=== PATIENT | male | born 1950 | race Caucasian/White ===

== ENCOUNTER → 2020-03-11 08:23 | Outpatient (BNVA) | payer MEDICARE, OTHER, SELFPAY | PROVIDERS: Family Provider Family Medicine; PCP Family Medicine; Visit Provider Family Medicine | DX: I10 Essential (primary) hypertension (principal); R35.1 Nocturia; Z12.5 Encounter for screening for malignant neoplasm of prostate; E78.5 Hyperlipidemia, unspecified; E78.2 Mixed hyperlipidemia | CPT/HCPCS: 80053; 80061; 82044; 84153; 85025 ==

== ENCOUNTER 2020-05-27 16:48 | Emergency (ER) | payer MEDICARE, OTHER, SELFPAY ==
[2020-05-27 16:51] VITALS: BP 145/67; PULSE 50; RESP 18; TEMP 36.3; O2SAT 93; BMI 31.4
--- NOTE | 2020-05-27 17:51 | XR_ITS ---
WS: [id number] PORTABLE CHEST HISTORY: Right-sided pain. COMPARISON: None available. Mild pulmonary hyperinflation. No pneumonia. No pleural effusion or pneumothorax. Cardiac size: Mildly enlarged cardiac silhouette. Mediastinum/Aorta: Mild atherosclerosis aorta. No osseous abnormality seen. XR/XR chest 1V portable [id number] IMPRESSION: Mild chronic emphysema and mild cardiomegaly. No acute cardiopulmonary disease.
--- NOTE | 2020-05-27 17:51 | ECG_ITS ---
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 Measurements Intervals [place] Rate: 48 P: 53 MO: 150 QRS: 7 QRSD: 94 T: 31 QT: 453 QTc: 407 Interpretive Statements SINUS BRADYCARDIA No previous ECG available for comparison Electronically Signed On 05-27-2020 20:34:03 CDT by Suma Austin M.D. [id number]
--- NOTE | 2020-05-27 18:35 | ED_ITS ---
HPI - Chest Pain General: Chief Complaint: Chest Pain Stated Complaint: cp Time Seen by Provider: 05/27/20 18:27 History of Present Illness: HPI narrative: Patient states he was woken from sleep about 11:00 today when he is taken a nap with pain in his right side up above the kidney area. 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 Has a history of arrhythmias denies any heart attack or stents. Has had a history of kidney stones. MD complaint: chest discomfort Onset (ago): hour(s) Timing of current episode: episodic and now resolved Prior episodes: No Onset: during rest, during exertion and awoke with symptoms Pain location: substernal and right chest Pain radiation: none Severity: mild Quality: sharp Relieving factors: nitroglycerin and rest Exacerbating factors: nothing Associated symptoms: Reports no associated symptoms; Deny abdominal pain, dyspnea, fever(s), nausea or vomiting Treatment prior to arrival: aspirin and nitroglycerin Review of Systems Const: Denies: fever(s), chills or body aches Eyes: Denies: change in vision or blurry vision ENMT: Denies: throat pain or nasal congestion Card: Reports: chest pain (Right-sided chest pain and then some substernal pressure); Denies: dyspnea on exertion Resp: Denies: dyspnea, productive cough or non-productive cough GI: Denies: abdominal pain, nausea or vomiting : Denies: difficulty urinating Musc: Denies: extremity pain Skin/Breast: Denies: rash Neuro: Denies: headache(s) Psych: Denies: anxiety or depression Juan/Lymph: Denies: easy bruising PFSH ED PFSH: Medical History (Updated 05/27/20 @ 20:18 by CIRO Aragon) Enrolled in chronic care management Essential hypertension Hyperlipidemia Surgical History H/O vasectomy History of appendectomy History of tonsillectomy and adenoidectomy Family History Other Cancer Social History Smoking and tobacco status: former smoker Alcohol intake: never Physical Exam Const: COMMON NORMALS: no acute distress, average body habitus and patient oriented x3 HENMT: COMMON NORMALS: normocephalic HEAD & SCALP: normal to inspection and normocephalic FACE & SINUS: normal facial exam Eye: COMMON NORMALS: conjunctivae normal GENERAL EYE: appearance normal, both eyes and all related structures CONJUNCTIVA: Yes conjunctivae normal Neck/C-Spine: COMMON NORMALS: no JVD Chest: COMMONS NORMALS: normal inspection of the chest Resp: COMMON NORMALS: normal respiratory effort and clear to auscultation bilaterally AUSCULTATION: clear to auscultation bilaterally Cardio: COMMON NORMALS: no JVD, regular rate and regular rhythm RATE: regular rate RHYTHM: regular rhythm GI: COMMON NORMALS: Normal to inspection, nondistended, normoactive bowel sounds present Extremity: COMMON NORMALS: normal to inspection and full ROM Neuro: COMMON NORMALS: patient oriented x3 Course Vital Signs: Vital signs: Vital Signs Temperature 97.4 F L 05/27/20 16:51 Pulse Rate 44 L 05/27/20 18:46 Respiratory Rate 17 05/27/20 18:46 Blood Pressure 143/59 05/27/20 18:46 Pulse Oximetry 98 05/27/20 18:46 MDM - Chest Pain MDM Narrative: Medical decision making narrative: Discussed case with Dr. Brown. Patient with the atypical chest pain possible pleurisy possible angina gallbladder disease Lab Data: Labs: Lab Results 05/27/20 05/27/20 05/27/20 Range/Units 18:42 18:42 18:42 WBC 11.3 H (4.0-10.0) 10^3/ uL RBC 4.64 (4.1-5.3) 10^6/u L Hgb 13.1 (11.7-16.6) g/dL Hct 41.2 L (42.0-52.0) % MCV 88.8 (80-94) fL MCH 28.2 (28.0-34.0) pg MCHC 31.8 (30.0-36.0) g/dL RDW 14.6 (12.1-15.1) % Plt Count 163 (130-400) 10^3/c mm MPV 11.2 H (7.4-10.4) fL Neut % (Auto) 60.0 % Lymph % (Auto) 22.7 % Perkins % (Auto) 7.8 % Eos % (Auto) 7.5 % Baso % (Auto) 1.6 % Neut # (Auto) 6.79 (1.8-7.7) 10^3/u L Lymph # (Auto) 2.6 (0.8-4.8) 10^3/u L Perkins # (Auto) 0.9 (0.2-0.9) 10^3/u L Eos # (Auto) 0.9 H (0.0-0.8) 10^3/u L Baso # (Auto) 0.2 H (0.0-0.1) 10^3/u L Nucleated RBC % (a uto) 0 % Nucleated RBCs # 0.0 /100WBC Sodium 142 (136-145) mmol/L Potassium 4.4 (3.5-5.1) mmol/L Chloride 102 (98-107) mmol/L Carbon Dioxide 30 H (22-29) mmol/L Anion Gap 14.4 (5-19) BUN 20 (8-23) mg/dL Creatinine 1.3 H (0.7-1.2) mg/dL GFR Calculation 54.9 L (90-130) mL/min Glucose 88 (65-115) mg/dL Calculated Osmolal ity 290 (285-295) mOsm/k g Calcium 9.8 (8.5-10.5) mg/dL Total Bilirubin 0.4 (0.15-1.2) mg/dL AST 16 (0-40) U/L ALT 8 (0-41) U/L Alkaline Phosphata se 93 (40-130) IU/L Troponin T Baselin e 9 (0-15) ng/L Troponin T 120 Min [place] (0-15) ng/L Delta Troponin T (0-10) ABS# Total Protein 7.2 (6.6-8.7) g/dL Albumin 4.7 (3.5-5.2) g/dL Globulin 2.5 (1.3-4.6) g/dL 05/27/20 Range/Units 19:07 WBC (4.0-10.0) 10^3/ uL RBC (4.1-5.3) 10^6/u L Hgb (11.7-16.6) g/dL Hct (42.0-52.0) % MCV (80-94) fL MCH (28.0-34.0) pg MCHC (30.0-36.0) g/dL RDW (12.1-15.1) % Plt Count (130-400) 10^3/c mm MPV (7.4-10.4) fL Neut % (Auto) % Lymph % (Auto) % Perkins % (Auto) % Eos % (Auto) % Baso % (Auto) % Neut # (Auto) (1.8-7.7) 10^3/u L Lymph # (Auto) (0.8-4.8) 10^3/u L Perkins # (Auto) (0.2-0.9) 10^3/u L Eos # (Auto) (0.0-0.8) 10^3/u L Baso # (Auto) (0.0-0.1) 10^3/u L Nucleated RBC % (a uto) % Nucleated RBCs # /100WBC Sodium (136-145) mmol/L Potassium (3.5-5.1) mmol/L Chloride (98-107) mmol/L Carbon Dioxide (22-29) mmol/L Anion Gap (5-19) BUN (8-23) mg/dL Creatinine (0.7-1.2) mg/dL GFR Calculation (90-130) mL/min Glucose (65-115) mg/dL Calculated Osmolal ity (285-295) mOsm/k g Calcium (8.5-10.5) mg/dL Total Bilirubin (0.15-1.2) mg/dL AST (0-40) U/L ALT (0-41) U/L Alkaline Phosphata se (40-130) IU/L Troponin T Baselin e (0-15) ng/L Troponin T 120 Min [place] 8.61 (0-15) ng/L Delta Troponin T -0.39 L (0-10) ABS# Total Protein (6.6-8.7) g/dL Albumin (3.5-5.2) g/dL Globulin (1.3-4.6) g/dL Discharge Plan Discharge Patient Disposition: Home, Self-Care Clinical Impression: Atypical chest pain Condition: Stable Prescriptions: No Action aspirin 81 mg tablet,delayed release (DR/EC) 81 mg PO DAILY RF: 0 hydrochlorothiazide 25 mg tablet 25 mg PO QAM Qty: 90 RF: 0 meloxicam 15 mg tablet 15 mg PO QDAY Qty: 90 RF: 0 losartan 50 mg tablet 50 mg PO QDAY Qty: 90 RF: 0 atorvastatin 20 mg tablet 20 mg PO QDAY Qty: 90 RF: 0 pantoprazole 40 mg tablet,delayed release (DR/EC) 40 mg PO QDAY Qty: 90 RF: 0 metoprolol succinate 25 mg tablet extended release 24 hr 12.5 mg PO QDAY RF: 0 Discharge Orders: Discharge Order (Routine); Ordered 05/27/20 Ordered By: Shaw Crump Referrals: Damari Nielosn DO [Primary Care Provider] - Discharge Diet: Usual diet Discharge Activity: Increase activity as tolerated Patient Instructions: Chest Pain (ED) Activity Restrictions/Additional Instructions: Follow-up with medical provider as directed. Take routine medicines. Return to the ER or your medical provider if condition worsens. Please read and understand discharge instructions. If any questions ask please. Coding Level of Care Code ED Quarter Folder for Adi Fwda Exam Comprehensive
[2020-05-27 18:46] VITALS: BP 143/59; PULSE 44; RESP 17; O2SAT 98
[2020-05-27 19:16] LABS: Basophils # 0.2 10^3/uL (0.0-0.1); Basophils % 1.6 %; Eosinophils # 0.9 10^3/uL (0.0-0.8); Eosinophils % 7.5 %; Hematocrit 41.2 % (42.0-52.0); Hemoglobin 13.1 g/dL (11.7-16.6); Lymphocytes # 2.6 10^3/uL (0.8-4.8); Lymphocytes % 22.7 %; Mean Corpuscular HGB Conc 31.8 g/dL (30.0-36.0); Mean Corpuscular Hemoglobin 28.2 pg (28.0-34.0); Mean Corpuscular Volume 88.8 fL (80-94); Mean Platelet Volume 11.2 fL (7.4-10.4); Monocytes # 0.9 10^3/uL (0.2-0.9); Monocytes % 7.8 %; Neutrophils # 6.79 10^3/uL (1.8-7.7); Nucleated Red Blood Cells % 0 %; Platelet Count 163 10^3/cmm (130-400); Red Blood Count 4.64 10^6/uL (4.1-5.3); Red Cell Distribution Width 14.6 % (12.1-15.1); White Blood Count 11.3 10^3/uL (4.0-10.0)
[2020-05-27 19:27] LABS: Alanine Aminotransferase 8 U/L (0-41); Albumin Level 4.7 g/dL (3.5-5.2); Alkaline Phosphatase 93 IU/L (40-130); Anion Gap 14.4 (5-19); Aspartate Amino Transferase 16 U/L (0-40); Blood Urea Nitrogen 20 mg/dL (8-23); Calcium 9.8 mg/dL (8.5-10.5); Carbon Dioxide 30 mmol/L (22-29); Chloride 102 mmol/L (98-107); Globulin 2.5 g/dL (1.3-4.6); Glomerular Filtration Rate 54.9 mL/min (90-130); Glucose 88 mg/dL (65-115); Osmolality Calculated 290 mOsm/kg (285-295); Potassium 4.4 mmol/L (3.5-5.1); Sodium 142 mmol/L (136-145); Total Bilirubin 0.4 mg/dL (0.15-1.2); Total Protein 7.2 g/dL (6.6-8.7)
[2020-05-27 19:29] LABS: Troponin(5th) Baseline 9 ng/L (0-15)
[2020-05-27 19:35] LABS: Troponin 5 2HR 8.61 ng/L (0-15)
[2020-05-27 19:38] LABS: Troponin 5 2HR Delta -0.39 ABS# (0-10)
[2020-05-27 19:46] VITALS: BP 145/64; PULSE 45; RESP 16; O2SAT 97
--- NOTE | 2020-05-27 19:51 | ECG_ITS ---
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 Measurements Intervals [place] Rate: 41 P: 60 AZ: 165 QRS: 4 QRSD: 103 T: 28 QT: 486 QTc: 402 Interpretive Statements SINUS BRADYCARDIA MINIMAL ST DEPRESSION [0.025+ mV ST DEPRESSION] Compared to ECG 05/27/2020 16:55:50 ST (T wave) deviation now present Electronically Signed On 05-28-2020 17:08:33 CDT by Bay Matias M.D. [id number] f
--- NOTE | 2020-05-27 20:04 | PC.NURSE ---
ekg done at 1948 and shown to ER doctor
[2020-05-27 20:46] VITALS: BP 124/59; PULSE 46; RESP 15; O2SAT 100
== END 2020-05-27 21:14 | disposition home or self-care (01) ==
PROVIDERS: Emergency Provider Nurse Practitioner Family; PCP Family Medicine
DX: R07.89 Other chest pain (principal); Z79.82 Long term (current) use of aspirin; I10 Essential (primary) hypertension; E78.5 Hyperlipidemia, unspecified; Z87.891 Personal history of nicotine dependence
CPT/HCPCS: 12345; 36415; 71045; 80053; 84484; 85025; 93005; 99283

== ENCOUNTER → 2020-12-10 10:04 | Outpatient (BNVA) | payer MEDICARE, OTHER, SELFPAY | PROVIDERS: PCP Family Medicine; Visit Provider Family Medicine | DX: E78.2 Mixed hyperlipidemia (principal); I10 Essential (primary) hypertension; K21.9 Gastro-esophageal reflux disease without esophagitis | CPT/HCPCS: 80053; 80061; 85025 ==

== ENCOUNTER → 2021-02-17 08:10 | Outpatient (BNVA) | payer MEDICARE, OTHER, SELFPAY | PROVIDERS: PCP Family Medicine; Visit Provider Family Medicine | DX: I10 Essential (primary) hypertension (principal) | CPT/HCPCS: 80048 ==

== ENCOUNTER → 2021-03-22 08:32 | Outpatient (BNVA) | payer MEDICARE, OTHER, SELFPAY | PROVIDERS: PCP Family Medicine; Visit Provider Family Medicine | DX: M25.50 Pain in unspecified joint (principal) | CPT/HCPCS: 80048 ==

== ENCOUNTER → 2021-11-29 11:21 | Outpatient (BNVA) | payer MEDICARE, SELFPAY | PROVIDERS: PCP Family Medicine; Visit Provider Family Medicine | DX: Z12.5 Encounter for screening for malignant neoplasm of prostate (principal); I10 Essential (primary) hypertension; E78.2 Mixed hyperlipidemia | CPT/HCPCS: 80053; 80061; 82043; 85025; G0103 ==

== ENCOUNTER → 2021-12-14 08:52 | Outpatient (BNVA) | payer MEDICARE, SELFPAY | PROVIDERS: PCP Family Medicine; Visit Provider Family Medicine | DX: N28.9 Disorder of kidney and ureter, unspecified (principal) | CPT/HCPCS: 80048 ==

== ENCOUNTER → 2022-05-30 09:34 | Outpatient (BNVA) | payer MEDICARE, SELFPAY | PROVIDERS: PCP Family Medicine; Visit Provider Family Medicine | DX: I10 Essential (primary) hypertension (principal) | CPT/HCPCS: 80053 ==

== ENCOUNTER 2022-08-31 06:33 | Outpatient (CLI) | payer MEDICARE, OTHER, SELFPAY ==
[2022-08-31 06:55] VITALS: BMI 31.1
--- NOTE | 2022-08-31 07:17 | ECG_ITS ---
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 Interpretive Statements NAME OF STUDY: EXERCISE SESTAMIBI STRESS TEST INDICATION: Chest Pain, PROCEDURE: The baseline electrocardiogram showed sinus bradycardia with a rate of [address] changes in the inferior leads.. At the baseline, the patient's blood pressure was 141/74 mm Hg with a heart rate of 55. The patient exercised for 4 minutes and 31 seconds on a standard Vlad protocol. Patient attained a maximum heart rate of 149 beats per minute(99% of the maximum predicted heart rate) with a blood pressure at the peak exercise of 196/83 mm Hg. The EKG at the peak exercise revealed no significant changes. Patient did not have any chest pain or any significant arrhythmis with the exercise Sestamibi was injected 1 minute prior to the peak exercise During the recovery phase, there were no new changes. Blood pressure at the end of the recovery phase was 174/76 mm Hg with a heart rate of 95 per minute. CONCLUSION: 1. No significant EKG changes with the treadmill exercise 2. No exercise-induced chest pain or cardiac arrhythmia 3. Impaired exercise tolerance, attained a maximum of 7 METs 4. Sestamibi/Sestamibi perfusion results pending; see separate report. Electronically Signed On 09-01-2022 10:11:28 CDT by Suma Austin M.D. [id number]
--- NOTE | 2022-08-31 07:17 | NMCV_ITS ---
NM dee perf SPECT r/s* [id number] Kannan Ren Age: 72 Gender: M : 1950 Exam Date: 08/31/2022 07:32 Ordering Phys: Damari Nielson DO Technologist: RANJEET Sim Exam Location: [facility] Indications: Chest pain, SOB STRESS TEST Please see separate stress test report in Ephiphany for full findings IMAGE PROTOCOL Rest/Stress 1 Exercise Day Radiopharmaceutical Dose (mCi) Administration Site Administered by Rest: Tc-99m 11.0 IV RANJEET Sim Sestamibi Stress:Tc-99m 33.0 IV RANJEET Sim Sestamibi Rest: 31-Aug-2022 60 Discovery 630 Stress: 31-Aug-2022 30 Discovery 630 Radiopharmaceutical was injected at 87 % maximum heart rate. Supine position only as patient was unable to lay prone. SPECT RESULTS Technical Quality: Excellent Raw Data Analysis: Normal Image Corrections: No attenuation or motion correction applied Summed Stress Score: 0 Summed Rest Score: 6 Summed Difference Score: 0 PERFUSION FINDINGS Small area of slightly decreased tracer uptake was noted in the mid inferior wall region. No significant reversibility was noted in this area FUNCTIONAL RESULTS (calculated via Gated SPECT) Stress Image LV EF (%): 81 Stress EDV (mL):102 TID: 0.87 Stress ESV (mL):19 FUNCTIONAL FINDINGS: Segmental wall motion analysis revealing no gross wall motion normalities IMPRESSIONS 1. Myocardial perfusion imaging revealing a small area of slightly decreased persistent tracer uptake in the inferior wall region, most likely represent attenuation artifact. 2. Normal LV ejection fraction of 81%. 3. LV wall motion analysis revealing no gross wall motion abnormalities. 4. Normal LV volume Low probability for coronary ischemia, based on the above findings Dr Suma Austin MD [facility] (Electronically Signed) Final Date: 31 August 2022 13:57 S
[2022-08-31 08:58] VITALS: BP 174/76; PULSE 93
== END 2022-08-31 06:34 | disposition home or self-care (01) ==
PROVIDERS: PCP Family Medicine; Visit Provider Family Medicine
DX: R07.9 Chest pain, unspecified (principal); R06.02 Shortness of breath
CPT/HCPCS: 78452; 93017; A9500

== ENCOUNTER → 2022-11-28 10:10 | Outpatient (BNVA) | payer MEDICARE, OTHER, SELFPAY | PROVIDERS: PCP Family Medicine; Visit Provider Family Medicine | DX: I10 Essential (primary) hypertension (principal); R35.1 Nocturia | CPT/HCPCS: 80048; 84153 ==

== ENCOUNTER → 2023-01-10 14:00 | Outpatient (BNVA) | payer MEDICARE, OTHER, SELFPAY | PROVIDERS: PCP Family Medicine; Visit Provider Internal Medicine Cardiovascular Disease | DX: R07.89 Other chest pain (principal); R06.09 Other forms of dyspnea; G47.10 Hypersomnia, unspecified; E78.2 Mixed hyperlipidemia; I12.9 Hypertensive chronic kidney disease with stage 1 through stage 4 chronic kidney disease, or unspecified chronic kidney disease; Z87.891 Personal history of nicotine dependence; N18.32 Chronic kidney disease, stage 3b; R06.02 Shortness of breath | CPT/HCPCS: 36415; 80048; 80076; 82550; 83880; 93005; 99204 ==

== ENCOUNTER 2023-02-03 13:51 | Outpatient (CLI) | payer MEDICARE, OTHER, SELFPAY ==
--- NOTE | 2023-02-03 14:15 | USCV_ITS ---
Kannan Ren Age: 72 Gender: M : 1950 Exam Date: 02/03/2023 14:33 Ordering Phys: Suma Austin MD ([email or web address]) Technologist: SONU Exam Location: [facility] [place] Indication: CHEST PAIN BP: 144 / 80 HR: 48 Rhythm: Sinus Technical Quality: Adequate MEASUREMENTS (Male / Female) Normal Values 2D ECHO LVOT Diameter 2.0 cm LV Ejection Fraction MOD 2C 68.9 % LV Ejection Fraction 2C AL 71.5 % LA Diameter 4.3 cm LA Width 4.0 cm LA Height 5.6 cm RA Width 2.6 cm RA Height 5.2 cm Aorta at Sinotubular Diameter 3.1 cm IVC Diameter 1.8 cm M-MODE Aortic Annulus Diameter 3.1 cm LA Ao Ratio MM 1.3 MV E Point Septal Separation 0.4 cm DOPPLER AV Peak Velocity 163.7 cm/s LVOT Peak Velocity 135.0 cm/s AV Area Cont Eq vti 3.0 cm squared AV Area Cont Eq pk 2.7 cm squared MV Peak Velocity 64.0 cm/s MV Area PHT 3.5 cm squared Mitral E to A Ratio 1.2 MV E' Velocity 39.0 cm/s Mitral E to MV E' Ratio 8.7 Mitral E to LV E' Lateral Ratio 8.7 Mitral E to LV E' Septal Ratio 8.8 TR Peak Velocity 152.2 cm/s TR Peak Gradient 9.3 mmHg TR Mean Velocity 123.5 cm/s TR Mean Gradient 6.3 mmHg TR Velocity Time Integral 43.2 cm TV Peak E Velocity 46.0 cm/s Right Atrial Pressure 3.0 mmHg Pulmonary Artery Systolic Pressu 12.3 mmHg PV Peak Velocity 90.0 cm/s RV Acceleration Time 0.1 s RV Ejection Time 0.4 s RV AcT/ET 0.3 FINDINGS Left Ventricle Normal left ventricular size and systolic function, EF 69 %. No regional wall motion abnormalities. Right Ventricle Normal right ventricular size and systolic function. Right Atrium The right atrium is normal in size. Left Atrium The left atrium is normal in size. Mitral Valve Structurally normal mitral valve without significant stenosis or prolapse. There is no mitral regurgitation. Aortic Valve Thickened aortic valve. Mild aortic valve regurgitation. Tricuspid Valve No gross abnormalities noted Pulmonic Valve Structurally normal pulmonic valve. Pericardium No pericardial effusion. Aorta Normal aortic annulus size. IVC The inferior vena cava appears normal. CONCLUSIONS Normal left ventricular size and systolic function, EF 69 %. No regional wall motion abnormalities. Thickened aortic valve. Mild aortic valve regurgitation. Normal cardiac chamber sizes. No significant mitral or tricuspid valve lesions. There is no pericardial effusion. There are no intracardiac masses. No similar previous studies are available for comparison Dr Suma Austin MD [facility] (Electronically Signed) Final Date: 03 February 2023 16:42 S
== END 2023-02-03 13:52 | disposition home or self-care (01) ==
PROVIDERS: PCP Family Medicine; Visit Provider Internal Medicine Cardiovascular Disease
DX: R06.09 Other forms of dyspnea (principal); R07.9 Chest pain, unspecified; I35.1 Nonrheumatic aortic (valve) insufficiency
CPT/HCPCS: 93306

== ENCOUNTER → 2023-05-29 09:56 | Outpatient (BNVA) | payer MEDICARE, OTHER, SELFPAY | PROVIDERS: PCP Family Medicine; Visit Provider Family Medicine | DX: N18.32 Chronic kidney disease, stage 3b (principal); E78.2 Mixed hyperlipidemia | CPT/HCPCS: 80053; 80061 ==

== ENCOUNTER 2023-11-30 09:17 | Outpatient (CLI) | payer MEDICARE, OTHER, SELFPAY ==
--- NOTE | 2023-11-30 09:26 | XR_ITS ---
WS: [id number] XR sacroiliac jts m 3V [id number] REASON FOR EXAM: right knee pain FINDINGS: Sacroiliac joints are well-defined with thin sclerotic margins. No erosions, bridging, or fusion. No sacral insufficiency fractures. Severe osteoarthritis of the right hip with severe subchondral sclerosis and cystic change in the malathi tabulum and femoral head. [id number] articulation. IMPRESSION: No significant abnormality of the sacroiliac joints. Severe osteoarthritis of the right hip as above.
--- NOTE | 2023-11-30 09:26 | XR_ITS ---
WS: [id number] XR lumbar spine 2-3V* [id number] REASON FOR EXAM: right SI pain FINDINGS: 5 lumbar vertebrae. Rotatory scoliosis convex left. Relatively normal lordosis. No focal vertebral body abnormality. Significant narrowing of the L2-L3 disc space with moderate endplate sclerosis and osteophytosis. No spondylolysis or significant spondylolisthesis. Mild degenerative changes in the facet joints L4 4 to S1. IMPRESSION: Moderate changes of degenerative spondylosis in the lumbar spine.
--- NOTE | 2023-11-30 09:26 | XR_ITS ---
WS: [id number] XR knee RT 3V* [id number] REASON FOR EXAM: right knee pain FINDINGS: No fracture or focal bone lesion. Medial knee joint space is intact with mild subchondral sclerosis. Mild narrowing of the lateral knee joint space with mild subchondral sclerosis. Patellofemoral joint space is intact with mild subchondral sclerosis of the patella. No soft tissue abnormality. IMPRESSION: Mild osteoarthritis at the right knee.
== END 2023-11-30 09:18 | disposition home or self-care (01) ==
LOC: RAD 09:22
PROVIDERS: PCP Family Medicine; Visit Provider Family Medicine
DX: M53.3 Sacrococcygeal disorders, not elsewhere classified (principal); G89.29 Other chronic pain; I10 Essential (primary) hypertension; R35.1 Nocturia; M16.11 Unilateral primary osteoarthritis, right hip; M47.817 Spondylosis without myelopathy or radiculopathy, lumbosacral region; M17.11 Unilateral primary osteoarthritis, right knee
CPT/HCPCS: 72100; 72202; 73562; 80053; 84153; 85025

== ENCOUNTER → 2024-01-22 13:16 | Outpatient (BNVA) | payer MEDICARE, OTHER, SELFPAY | PROVIDERS: PCP Family Medicine; Referring Provider Family Medicine; Visit Provider Specialist | DX: M25.551 Pain in right hip (principal); M16.11 Unilateral primary osteoarthritis, right hip; Z01.818 Encounter for other preprocedural examination | CPT/HCPCS: 73502; 73560; 73565; 80053; 81003; 85025; 99204 ==

== ENCOUNTER → 2024-02-14 09:45 | Outpatient (BNVA) | payer MEDICARE, OTHER, SELFPAY | PROVIDERS: PCP Family Medicine; Visit Provider Family Medicine | DX: Z01.818 Encounter for other preprocedural examination (principal) | CPT/HCPCS: 81003; 93005 ==

== ENCOUNTER 2024-02-22 12:10 | Inpatient (IN) | payer MEDICARE, OTHER, SELFPAY ==
[2024-02-22] VITALS (18 sets, daily range): BP systolic 106–135; BP diastolic 65–91; PULSE 65–89; RESP 14–18; TEMP 35.6–36.7; O2SAT 92–96; BMI 31.3; BMI 4491.3
--- NOTE | 2024-02-22 07:10 | P.HPUD_ITS ---
Surgery/Procedure H&P Update DATE OF PROCEDURE: February 22, 2024 DATE H&P PERFORMED: 02/14/24 H&P UPDATE INFORMATION: I have reviewed H&P completed within last 30 days, I have examined patient prior to procedure, No changes to prior documentation and H&P is in [facility] EMR on date indicated PLANNED PROCEDURE: Operation Date: 02/22/24 08:50 Proposed Procedures p Total Hip Arthroplasty(Right) - Jennie Cole MD Related Problem List Diagnoses (1) Primary osteoarthritis of right hip:
--- NOTE | 2024-02-22 07:55 | ANES.PREANE2 ---
Pre-Anesthetic Assessment Height/Weight: Height 1.83 m Weight 104.647 kg Temp Pulse Resp BP Pulse Ox O2 Del Method 97.5 F L 65 16 129/80 96 Room Air 02/22/24 07:22 02/22/24 07:22 02/22/24 07:22 02/22/24 07:22 02/22/24 07:22 02/22/24 07:29 Operation Date: 02/22/24 08:50 Proposed Procedures p Total Hip Arthroplasty(Right) - Jennie Cole MD Was Beta Juan taken within 24 hours: Yes Last intake: Intake Last Liquid Date 02/21/24 Last Liquid Time 21:00 Last Solid Date 02/21/24 Last Solid Time 21:00 Social No alcohol and No tobacco Exam alert, oriented x 3, clear to auscultation bilaterally and regular rate & rhythm Airway Submandibular: within normal limits Cervical ROM: within normal limits Mallampati: Class I CV/HEM Arrythmia and Hypertension None reported Hepatic None reported GI None reported Metabolic None reported Musc/skel None reported Anesthetic Plan ASA status: 2 Anesthesia: Regional (specify below) Other: spinal discussed. Risk of > 500 ml blood loss (7ml/kg in children): Yes, adequate IV access and fluids planned Medications/Allergies Home Medications Medication Instructions Recorded Confirmed Last Taken Type nitroglycerin 0.4 mg sublingual 0.4 mg sublingual Q5M PRN chest 10/13/23 02/21/24 Unknown Rx tablet (Nitrostat) pain #20 tabs tramadol 50 mg tablet 50 mg PO BID PRN pain #180 tabs 12/04/23 02/21/24 02/21/24 Rx losartan 50 mg tablet 50 mg PO QDAY 90 days #90 tabs 12/19/23 02/21/24 02/21/24 Rx meloxicam 7.5 mg tablet 7.5 mg PO QDAY 90 days #90 tabs 12/19/23 02/21/24 02/20/24 Rx hydrochlorothiazide 25 mg tablet 25 mg PO DAILY 02/21/24 02/21/24 02/21/24 History metoprolol succinate 25 mg 12.5 mg PO DAILY 02/21/24 02/21/24 02/21/24 History tablet,extended release 24 hr pantoprazole 40 mg tablet,delayed 40 mg PO DAILY 04/02/21/24 02/21/24 History release Allergies Allergy/AdvReac Type Severity Reaction Status Date / Time No Known Allergies Allergy Verified 02/14/24 10:08 [facility] Anesthesia Medical History Hyperlipidemia Essential hypertension Surgical History History of appendectomy History of tonsillectomy and adenoidectomy H/O vasectomy Family History Other Cancer Social History Smoking and tobacco/nicotine status: former use of tobacco/nicotine Second hand smoke exposure: No Alcohol intake: never Substance/Drug Use: never Data Anesthesia Cardiac Studies: Echocardiogram 02/03/23 Sestamibi Stress Test (Cardiology) 08/31/22 Cardiac Event Monitor 10/25/23
[2024-02-22] MEDS: CELEcoxib 200 mg Capsule 400 MG PO (08:01)
[2024-02-22] MEDS: sodium chloride 0.9% 1,000 ML 30 ML IV (08:01)
[2024-02-22] MEDS: acetaminophen 1,000 MG/100 ML PIGGYBACK 400 MG IV ×3 (08:01→23:42)
[2024-02-22] MEDS: gabapentin 300 mg Capsule PO (08:02)
[2024-02-22] MEDS: ceFAZolin 2,000 MG in sodium chloride 0.9% (plus) 50 ML 100 MG IV ×2 (08:26→16:42)
[2024-02-22] MEDS: tranexamic acid 1,000 mg/10mL SDV 1000 MG IV (09:00)
[2024-02-22] MEDS: ceFAZolin 1,000 mg SDV 1000 MG IRRIGATION (09:38)
[2024-02-22] MEDS: vancomycin 1,000 MG SDV 1000 MG XX (09:39)
--- NOTE | 2024-02-22 12:06 | PM.OP ---
Operative Report Date of procedure: February 22, 2024 Pre-op diagnosis: Severe degenerative osteoarthritis of the right hip Post-op diagnosis: Severe degenerative osteoarthritis of the right hip Post-op findings: Severe degenerative osteoarthritis with large osteophytes particularly anteriorly and a very deformed femoral head Procedure done: Right total hip arthroplasty Implants: The [employer] total hip system with a size 58 mm by F alpha code Trident II Tritanium acetabular shell with an MDM liner size 46 mm inner diameter by F alpha code.? A size 5 Accolade II 132? neck angle hip stem with a size 28 mm x +0 mm femoral head and a mandaen MDM X3 insert size 28 mm x 46F Specimens removed/disposition: Bone, disposed of Pathology: None Surgeon: Jennie Cole MD Insemination Worker: [facility] operating room technicians Anesthesia: Spinal (With MAC, ASA 2) Estimated blood loss (mL): 600 IV fluids (mL): 2,000 Urine output (mL): 200 Complications: None Findings: Severe degenerative osteoarthritis of the right hip. The hip is stable at 90 degrees of flexion with nearly 90 degrees of internal rotation and 30 degrees of adduction. Leg lengths appear equal. It is also stable to external rotation. Condition: stable Disposition: PACU (Then to floor for postoperative rehabilitation and pain management) Brief History: This 73-year-old gentleman presents today for right total hip arthroplasty. Risks and complications were discussed with him preoperatively in the office. The patient rated his pain 4 of 10 prior to the surgical procedure. He reports pain lasting approximately a year plus. While in the office, consents were signed and questions were answered. Procedure: Patient was brought to the operating theater.? He was transferred to the operating room table and subsequently administered a spinal anesthesia, ASA 2.? Following administration of adequate anesthesia, the patient was placed in full lateral position and held in position with a pegboard.? The patient's right lower extremity was then prepped and draped in usual fashion utilizing DuraPrep.? It was draped free.? Following prepping and draping, a surgical pause was performed.? At the time of surgical pause, we identified the site and side of surgery.? We also identified the patient and preoperative surgical markings.?The patient's operative leg was compared to the opposite leg.? Confirmation was made of equipment availability.? Additionally, the patient's preoperative IV antibiotic, Ancef 2 g, and TXA administration was confirmed as well.? X-rays were also reviewed. Following the surgical pause, an incision was made centering over the patient's greater trochanter continuing proximally and distally as necessary to allow access to the hip joint.? Dissection continued through skin and soft tissues using a scalpel, and hemostasis was obtained using electrocautery. The tensor fascia cam was identified and incised longitudinally.? Sciatic nerve was identified and protected throughout the surgical procedure.? A Charnley U retractor was placed after the tensor fascia acm had been incised longitudinally, and the sciatic nerve had been identified.? The hip was internally rotated, and the piriformis muscle was identified and tagged. Piriformis muscle along with the remaining short external rotators were then incised from the posterior aspect of the hip joint.? These were retracted posteriorly.? The capsule was entered in a T-type fashion with the edges being tagged, and subsequently the hip was dislocated.? The labrum was excised with further excision accomplished once the femoral head was removed.? Following hip dislocation, a femoral neck osteotomy was accomplished in the appropriate position.? The head was measured, but it was quite deformed.? We then evaluated the acetabulum. The femur was retracted anteriorly.? Soft tissues were retracted, and the labrum was removed.? Labrum was noted to be quite large and deformed. This was removed. We then began reaming.? There were noted to be large osteophytes anteriorly with plans to remove them after cup placement. Once the femoral head was removed, there was noted to be significant loss of cartilage over the head with the previously noted deformity and cartilage loss within the acetabulum.? We reamed to a size 57 to allow for a size 58 acetabular shell.? The acetabulum was impacted into position.? The MDM liner was then impacted into position with care being taken to assure it seated appropriately.? It was noted that the acetabulum matched the bony anatomy.? The cup was noted to seat nicely and had good fixation upon impact. Large osteophytes were removed from the anterior aspect of the acetabulum following cup insertion. Attention was directed to the proximal femur.? The proximal femur was lifted out of the wound.? A canal finder was passed after the box chisel.? The reamer was used to lateralize.? We then began broaching. We broached sequentially and had excellent fit and fill with the size 5 broach. ? A trial reduction was attempted with a +0 mm femoral head initially, but we were not able to reduce the hip. Therefore, we performed a trial reduction with a -2.7 mm femoral head. With this in place, leg lengths appeared nearly equal, but it was decided to trial again with a +0 mm femoral head. This gave us excellent stability noted above. With this construct, with the final trial, the hip was noted to be stable, and leg length was felt to be equal.? The final construct included a +0 mm femoral head with the above-noted stem and acetabulum. With this in place, we had the above stabilities.? This was felt to be excellent stability. Therefore, trial components were removed after the hip was dislocated.? The size 5 Accolade II 132? neck angle stem was impacted into position without difficulty and onto this was placed a +0 mm x 28 mm femoral head which had been assembled into the MDM insert size 46F.? With a +0 mm femoral head, we had the above-noted stability.? The stem was noted to seat nicely prior to placement of the femoral head.? The wound was copiously irrigated with 20 mL of Betadine and 500 mL of normal saline mixed together.? Subsequently, we suctioned this out and irrigated the wound copiously with lactated Ringer's.? At this time, with all components in appropriate position, the hip was reduced.? Following reduction of the prosthesis once again, we confirmed the stability of the hip.? Leg lengths were also felt to be satisfactory. Being satisfied with the prosthesis, attention was directed to closure.? Closure was accomplished with 0 Vicryl in the capsular tissues.? Piriformis was reattached with 0 Vicryl as well.? Tensor fascia cam was closed with 0 Vicryl in an interrupted fashion.? The subcutaneous tissues were closed with combination of 0 Vicryl and 2-0 Monocryl.? Vancomycin powder and a Gelfoam thrombin mixture was placed into the wound as well.? The skin was closed with a running 3-0 STRATAFIX followed by Dermabond Prineo followed by OpSite.? The patient was placed in an abduction pillow.? He was returned the Recovery Room in a satisfactory condition and will be discharged to the floor for postoperative rehabilitation and pain management.? There were no complications or specimens. Related Problem List Diagnoses (1) Primary osteoarthritis of right hip:
--- NOTE | 2024-02-22 12:08 | XR_ITS ---
WS: [id number] Exam: XR pelvis 1-2V* [id number] Date/Time of Exam: 02/22/2024 12:09 PM Reason For Exam: S/P SHAMEKA Comparison 01/22/2024. A RIGHT hip prosthesis is in place. Postoperative changes in the adjacent soft tissues. Moderately ad vanced DJD of the LEFT hip noted. IMPRESSION1. Right-sided prosthesis in place as noted above.
--- NOTE | 2024-02-22 13:33 | PC.NURSE ---
Patient rectal temperature 96.0 taken by this nurse at 1325.
[2024-02-22] MEDS: CELEcoxib 200 mg Capsule PO (13:53)
[2024-02-22] MEDS: oxyCODONE 5 mg IR Tab/Cap PO ×2 (13:54→21:29)
[2024-02-22] MEDS: chlorhexidine gluconate 0.12% Btl 473 mL 30 ML MUCOUS MEM ×3 (13:54→21:29)
--- NOTE | 2024-02-22 13:55 | ANE.PACU2 ---
Inpatient post-anesthesia follow up: Vital signs: Temperature 96.0 F Pulse Rate 78 Respiratory Rate 17 Blood Pressure 130/73 Pulse Oximetry 95 Oxygen Delivery Me thod Room Air Oxygen Flow Rate 2 Fraction of Inspir ed Oxygen Hydration adequate: Yes Nausea and vomiting: No Mental status: Baseline Additional Comments: no apparent anesthetic complications noted
[2024-02-22] MEDS: tranexamic acid 1,000 MG/100 ML PREMIX 600 MG IV (14:43)
--- NOTE | 2024-02-22 15:27 | ECG_ITS ---
[facility] Test Date: 2024-02-22 Pat Name: Kannan Ren Department: Room: 267 Gender: Male Door Person: : 1950 Requested By: Jnenie Cole Order Number: [id number] Nataliia MD: Harvey Alexander M.D. Measurements Intervals [place] Rate: 84 P: 69 ND: 175 QRS: 7 QRSD: 92 T: 22 QT: 397 QTc: 471 Interpretive Statements SINUS RHYTHM LOW QRS VOLTAGE IN PRECORDIAL LEADS [QRS DEFLECTION < 1.0 mV IN CHEST LEADS] NONSPECIFIC ST & T-WAVE ABNORMALITY Compared to ECG 02/14/2024 09:51:06 T-wave abnormality now present Sinus bradycardia no longer present Indeterminate axis no longer present Incomplete right bundle-branch block no longer present ST (T wave) deviation no longer present Electronically Signed On 02-22-2024 17:25:01 CDT by Harvey Alexander M.D. [id number]
[2024-02-22] MEDS: ondansetron 2 mg/ML SDV 2 mL 4 MG IVP (15:44)
[2024-02-22] MEDS: iron polysaccharide complex 150 mg Capsule PO (17:38)
[2024-02-22] MEDS: calcium carbonate 500 mg Chew Tablet 1000 MG PO (17:38)
[2024-02-22] MEDS: sennosides-docusate Tablet 2 TAB PO (17:38)
[2024-02-22] MEDS: mupirocin oint 22 gm 1 APPLIC NASAL (17:38)
[2024-02-23] VITALS (10 sets, daily range): BP systolic 99–119; BP diastolic 61–82; PULSE 68–96; RESP 14–20; TEMP 36.5–36.9; O2SAT 90–96
[2024-02-23] MEDS: CELEcoxib 200 mg Capsule PO (00:41)
[2024-02-23] MEDS: ceFAZolin 2,000 MG in sodium chloride 0.9% (plus) 50 ML 100 MG IV ×2 (00:41→09:35)
[2024-02-23 04:55] LABS: Basophils # 0.1 10^3/uL (0.0-0.1); Basophils % 0.7 %; Eosinophils # 0.2 10^3/uL (0.0-0.8); Eosinophils % 1.3 %; Hematocrit 36.3 % (37-53); Lymphocytes # 2.1 10^3/uL (0.8-4.8); Lymphocytes % 16.8 %; Mean Corpuscular HGB Conc 32.8 g/dL (30-55); Mean Corpuscular Hemoglobin 29.2 pg (27-33); Mean Corpuscular Volume 89.2 fl (82-101); Mean Platelet Volume 10.7 fL (7.4-10.4); Monocytes # 1.2 10^3/uL (0.2-0.9); Monocytes % 9.7 %; Neutrophils # 8.99 10^3/uL (1.8-7.7); Neutrophils % 71.1 %; Nucleated Red Blood Cells % 0 %; Platelet Count 126 10^3/cmm (157-399); Red Blood Count 4.07 10^6/uL (3.85-5.65); White Blood Count 12.66 10^3/uL (3.29-11.43)
[2024-02-23 05:19] LABS: Anion Gap 11.4 (5-19); Blood Urea Nitrogen 19 mg/dL (8-23); Calcium 8.5 mg/dL (8.5-10.5); Carbon Dioxide 29 mmol/L (22-29); Chloride 103 mmol/L (98-107); Creatinine Clr Calc Pharmacy 91.2852; Glucose 107 mg/dL (65-115); Osmolality Calculated 291 mOsm/kg (285-295); Potassium 4.4 mmol/L (3.5-5.1); Sodium 139 mmol/L (136-145)
[2024-02-23] MEDS: oxyCODONE 5 mg IR Tab/Cap PO (06:03)
[2024-02-23] MEDS: iron polysaccharide complex 150 mg Capsule PO ×2 (08:31→19:02)
[2024-02-23] MEDS: acetaminophen 1,000 MG/100 ML PIGGYBACK 400 MG IV (08:31)
[2024-02-23] MEDS: cholecalciferol (vitamin D3) 1,000 unit Tablet 1000 UNIT PO (08:31)
[2024-02-23] MEDS: aspirin 325 mg EC Tablet PO (08:31)
[2024-02-23] MEDS: multivitamin therapeutic Tablet 1 TAB PO (08:31)
[2024-02-23] MEDS: sennosides-docusate Tablet 2 TAB PO ×2 (08:31→19:02)
[2024-02-23] MEDS: calcium carbonate 500 mg Chew Tablet 1000 MG PO ×2 (08:31→19:02)
[2024-02-23] MEDS: metoprolol succinate ER (24 HR) 25 mg Tablet 12.5 MG PO (08:32)
[2024-02-23] MEDS: pantoprazole DR 40 mg Tablet PO (08:32)
[2024-02-23] MEDS: mupirocin oint 22 gm 1 APPLIC NASAL (08:33)
[2024-02-23] MEDS: chlorhexidine gluconate 0.12% Btl 473 mL 30 ML MUCOUS MEM ×2 (08:33→20:42)
[2024-02-23] MEDS: ondansetron 2 mg/ML SDV 2 mL 4 MG IVP (09:23)
--- NOTE | 2024-02-23 09:29 | PC.CHAP ---
Pastoral Care Encounter/Spiritual Assessment Type of Contact [] Declined hiv counselor visit [] Patient/Family/Request visit [] Outpatient visit [] Follow-up visit [] Physician referral [] Code/Alert [x] Routine visit [] Staff referral [] Actively dying [] Patient sleeping [] Family support [] [] Out of room [] Palliative care [] [] Receiving care in room [] Pre-surgical visit [] Trauma [] Long length of stay [] ICU visit [] Other: Relational/Emotional Strength [x] Patient feels connected with others/family/visitors/staff [] Distress [] Loneliness/isolation [] Abandonment Spirituality of Patient [x] Person of Che [] Attends Christianity of their Che [x] Believes in Prayer [] Reads Bible or Spiritism materials [] There are 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 [x] Prayer [] Active listening [] Non-anxious presence [x] Spiritual/emotional support [] Crisis/trauma care [] Spiritual counseling [] Bereavement support [] Provided bereavement packet [] Provided Bible/devotional materials [] Provided toy/stuffed animal, coloring book to patient or family member [] Provided Communion [] Anointing/[place] [] Salvation [x] Completed spiritual assessment [] Other: Impact on Illness or Injury [] Angry [] Fearful [] Anxious [] Often cries [] Exhaustion [] Unable to work [] Unable to attend alevism [] Unable to walk/stand [] Unable to read [] Unable to drive [] Unable to eat/drink [] Unable to sleep [] Unable to be with family [] Patient intubated [] Other: Summary Time spent with patient 5 min
--- NOTE | 2024-02-23 09:52 | ECG_ITS ---
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 Measurements Intervals [place] Rate: 102 P: 68 MI: 161 QRS: -4 QRSD: 93 T: 30 QT: 343 QTc: 449 Interpretive Statements SINUS TACHYCARDIA WITH OCCASIONAL SUPRAVENTRICULAR PREMATURE COMPLEXES ST DEPRESSION, CONSIDER SUBENDOCARDIAL INJURY [0.1+ mV ST DEPRESSION] Compared to ECG 02/22/2024 15:36:49 ST (T wave) deviation now present Sinus rhythm no longer present T-wave abnormality no longer present Electronically Signed On 02-23-2024 17:00:14 CDT by Suma Austin M.D. [email or web address]/store/[id number]
--- NOTE | 2024-02-23 10:08 | ECG_ITS ---
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 Measurements Intervals [place] Rate: 85 P: 58 AR: 144 QRS: -5 QRSD: 84 T: 39 QT: 355 QTc: 423 Interpretive Statements SINUS RHYTHM NONSPECIFIC ST & T-WAVE ABNORMALITY Compared to ECG 02/23/2024 09:55:53 T-wave abnormality now present Sinus tachycardia no longer present ST (T wave) deviation no longer present Electronically Signed On 02-23-2024 17:00:35 CDT by Suma Austin M.D. [email or web address]/store/[id number]
--- NOTE | 2024-02-23 10:35 | PM.HP ---
Providers/Chief Complaint Admitting Physician: Dr. Amol Steele MD. Primary Care Provider: Damari Nielson DO Chief Complaint: M16.11 History of Present Illness Kannan Ren is a 73 year old male Medications/Allergies Home Medications Medication Instructions Recorded Confirmed Last Taken Type nitroglycerin 0.4 mg sublingual 0.4 mg sublingual Q5M PRN chest 10/13/23 02/21/24 Unknown Rx tablet (Nitrostat) pain #20 tabs tramadol 50 mg tablet 50 mg PO BID PRN pain #180 tabs 12/04/23 02/21/24 02/21/24 Rx losartan 50 mg tablet 50 mg PO QDAY 90 days #90 tabs 12/19/23 02/21/24 02/21/24 Rx hydrochlorothiazide 25 mg tablet 25 mg PO DAILY 02/21/24 02/21/24 02/21/24 History metoprolol succinate 25 mg 12.5 mg PO DAILY 02/21/24 02/21/24 02/21/24 History tablet,extended release 24 hr pantoprazole 40 mg tablet,delayed 40 mg PO DAILY 02/21/24 02/21/24 02/21/24 History release meloxicam 7.5 mg tablet 7.5 mg PO QDAY 90 days #90 tabs 02/22/24 02/22/24 02/21/24 Rx Allergies Allergy/AdvReac Type Severity Reaction Status Date / Time No Known Allergies Allergy Verified 02/14/24 10:08 PFSH Acute PFSH: Medical History Hyperlipidemia Essential hypertension Surgical History History of appendectomy History of tonsillectomy and adenoidectomy H/O vasectomy Family History Other Cancer Social History Smoking and tobacco/nicotine status: former use of tobacco/nicotine Second hand smoke exposure: No Alcohol intake: never Substance/Drug Use: never Vitals/I&O/Wt Last Vital Signs Temp 97.7 F 02/23/24 07:38 Pulse 84 02/23/24 07:38 Resp 16 04/19/24 07:38 BP 104/66 02/23/24 07:38 Pulse Ox 90 02/23/24 07:38 O2 Del Method Room Air 02/23/24 07:38 O2 Flow Rate 2 02/22/24 20:00 02/22/24 02/23/24 02/23/24 22:59 06:59 14:59 Intake Total 330 / 1680 390 / 2070 150 / 150 Output Total 800 / 1600 300 / 1900 Balance -470 / 80 90 / 170 150 / 150 Weight last 48 hrs Weight 252 lb Weight 230 lb Weight 230 lb 11.301 oz Physical Exam Urinary Catheter Management: Velez: Cath Placed During This Visit: yes, but has since been removed by the nurse Reason for Continuing Indwelling Catheter: Decision to DC Catheter Urinary Catheter Date of Insertion: 02/22/24 Urinary Catheter Time of Insertion: 08:50 Date Urinary Catheter Removed: 02/23/24 Time Urinary Catheter Discontinued: 06:12 Data 02/23/24 04:00 02/23/24 04:00 A&P Assessment and plan (1) Chest pressure: (2) FISHER (dyspnea on exertion): Coding Level of Care Code Acute Code for Chg Fwd Diagnoses Chest pressure R07.89 FISHER (dyspnea on exertion) R06.09
--- NOTE | 2024-02-23 10:42 | XR_ITS ---
WS: [id number] Exam: XR chest 1V portable [id number] Date/Time of Exam: 02/23/2024 11:12 AM Reason For Exam: chest pain Comparison 05/27/2020. The lungs are clear and fully inflated. Normal cardiomediastinal silhouette. No pleural effusions. [place] structures are intact. Monitoring leads superimpose the chest. IMPRESSION: 1. No acute cardiopulmonary finding.
--- NOTE | 2024-02-23 10:47 | P.CONIM_ITS ---
Documented by User: NOLAN Díaz STDNT 02/23/24 11:35 Providers/Reason For Consult 2 Consulting Physician/Specialty*: Dr. Amol Steele MD Reason for Consult*: Chest pain/discomfort Attending Physician: Jennie Cole MD Primary Care Provider: Damari Nielson DO History of Present Illness History of Present Illness Kannan Ren is a 73 year old male, patient of orthopedic admitted to the hospital post total right hip arthroplasty, consulted to us for new onset chest pressure/pain, shortness of breath, diaphoresis, and pallor. Patient reports 3- 4 previous episodes, each very with onset. The episodes can be with exertion or at rest. He reports frequent shortness of breath and diaphoresis when he is out exerting himself or playing with his dogs. He reports that this has been ongoing for approximately 20 years, and has had a stress test 20 years ago that was normal. Each previous episode has improved with nitroglycerin and rest. He had a stress test with [facility] in 2021 which was normal. His most recent previous episode was in October 2023, after which he was placed on a cardiac event monitor. Event monitor showed baseline normal sinus rhythm with less than 1% ectopic beats. Patient history significant for osteoarthritis of the right hip, chronic pain of the right knee, dyspnea on exertion, chest pressure/chest pain, actinic keratosis, nocturia, stage IIIb CKD, GERD, hyperlipidemia, hypertension. Patient reports after resting in chair, his chest pressure, shortness of breath, and diaphoresis have resolved. Review of Systems 2 General: Reports: 10 or more systems reviewed and unremarkable except in HPI and below Const: Reports: diaphoresis Card: Reports: chest pain Medications/Allergies Home Medications Medication Instructions Recorded Confirmed Last Taken Type nitroglycerin 0.4 mg sublingual 0.4 mg sublingual Q5M PRN chest 10/13/23 02/21/24 Unknown Rx tablet (Nitrostat) pain #20 tabs tramadol 50 mg tablet 50 mg PO BID PRN pain #180 tabs 12/04/23 02/21/24 02/21/24 Rx losartan 50 mg tablet 50 mg PO QDAY 90 days #90 tabs 12/19/23 02/21/24 02/21/24 Rx hydrochlorothiazide 25 mg tablet 25 mg PO DAILY 02/21/24 02/21/24 02/21/24 History metoprolol succinate 25 mg 12.5 mg PO DAILY 02/21/24 02/21/24 02/21/24 History tablet,extended release 24 hr pantoprazole 40 mg tablet,delayed 40 mg PO DAILY 02/21/24 02/21/24 02/21/24 History release meloxicam 7.5 mg tablet 7.5 mg PO QDAY 90 days #90 tabs 02/22/24 02/22/24 02/21/24 Rx Allergies Allergy/AdvReac Type Severity Reaction Status Date / Time No Known Allergies Allergy Verified 02/14/24 10:08 Current Medications Generic Name Dose Route Start Last Admin Trade Name Freq PRN Reason Stop Dose Admin Aspirin 325 mg 02/23/24 09:00 02/23/24 08:31 Aspirin 325 Mg Ec Tablet PO 325 mg DAILY SARAH Administration Calcium Carbonate 1,000 mg 02/22/24 18:00 02/23/24 08:31 Calcium Carbonate 500 Mg Chew Tablet PO 1,000 mg BID SARAH Administration Chlorhexidine Gluconate 30 ml 02/22/24 13:10 02/23/24 08:33 Chlorhexidine Gluconate 0.12% Btl 473 Ml MUCOUS MEM 30 ml QID SARAH Administration Metoprolol Succinate 12.5 mg 02/23/24 09:00 02/23/24 08:32 Metoprolol Succinate Er (24 Hr) 25 Mg Tablet PO 12.5 mg DAILY SARAH Administration Multivitamins Therapeutic 1 tab 02/23/24 09:00 02/23/24 08:31 Multivitamin Therapeutic Tablet PO 1 tab DAILY SARAH Administration Mupirocin 1 applic 02/22/24 18:00 02/23/24 08:33 Mupirocin Oint 22 Gm NASAL 02/27/24 17:59 1 applic BID SARAH Administration Protocol Ondansetron HCl 4 mg 02/22/24 13:10 02/23/24 09:23 Ondansetron 2 Mg/Ml Sdv 2 Ml IVP 4 mg Q6H PRN Administration NAUSEA AND VOMITING Oxycodone HCl 5 - 10 mg 02/22/24 13:10 02/23/24 06:03 Oxycodone 5 Mg Ir Tab/Cap PO 5 mg Q4H PRN Administration MODERATE TO SEVERE PAIN Pantoprazole Sodium 40 mg 02/23/24 09:00 02/23/24 08:[address] 40 Mg Tablet PO 40 mg DAILY SARAH Administration Polysaccharide Iron Complex 150 mg 02/22/24 18:00 02/23/24 08:31 Iron Polysaccharide Complex 150 Mg Capsule PO 150 mg BIDWM SARAH Administration Senna/Docusate Sodium 2 tab 02/22/24 18:00 02/23/24 08:31 Sennosides-Docusate Tablet PO 2 tab BID SARAH Administration Vitamin D 1,000 unit 02/23/24 09:00 02/23/24 08:31 Cholecalciferol (Vitamin D3) 1,000 Unit Tablet PO 1,000 unit DAILY SARAH Administration PFSH Acute 2 PFSH: Medical History (Updated 02/23/24 @ 11:21 by Mohsen Steele MD) Chronic low back pain Osteoarthritis of multiple joints Stage 3b chronic kidney disease GERD (gastroesophageal reflux disease) Hyperlipidemia Essential hypertension Surgical History History of appendectomy History of tonsillectomy and adenoidectomy H/O vasectomy Family History Father Lung cancer Heart disease Mother Diabetes mellitus, type 2 Brother Cancer at age 62, patient cannot recall what cancer. Sister Ovarian cancer Social History Smoking and tobacco/nicotine status: former use of tobacco/nicotine Second hand smoke exposure: No Alcohol intake: never Substance/Drug Use: never Other PFSH information: Supplemental PFSH Information: Former occupation in [employer], 10 years, retired in 1981. Vitals/I&O/Wt Last Vital Signs Temp 97.7 F 02/23/24 07:38 Pulse 84 02/23/24 07:38 Resp 16 02/23/24 07:38 BP 104/66 02/23/24 07:38 Pulse Ox 90 02/23/24 07:38 O2 Del Method Room Air 02/23/24 07:38 O2 Flow Rate 2 02/22/24 20:00 02/22/24 02/23/24 02/23/24 22:59 06:59 14:59 Intake Total 330 / 1680 390 / 2070 150 / 150 Output Total 800 / 1600 300 / 1900 Balance -470 / 80 90 / 170 150 / 150 Weight last 48 hrs Weight 252 lb Weight 230 lb Weight 230 lb 11.301 oz Physical Exam 2 Narrative: General: Mildly uncomfortable looking patient, resting in chair, with cold towel on head. He looks visibly pale, but conversing appropriately, and is alert and oriented. HEENT: Head normocephalic, atraumatic, PERRL, no scleral icterus or injection noted, neck supple, no thyromegaly noted. CV: Normal rate and rhythm, S1-S2 noted, no murmurs, rubs, or gallops noted. Pulm: Clear to auscultation bilaterally. GI: Abdomen soft, nontender, bowel sounds present Extremities: No edema or swelling noted, capillary refill brisk < 2 seconds, peripheral pulses +2 and equal in upper and lower extremities. Skin: Mild pallor and clamminess noted. Skin warm to touch. Urinary Catheter Management: Velez: Cath Placed During This Visit: yes, but has since been removed by the nurse Reason for Continuing Indwelling Catheter: Decision to DC Catheter Urinary Catheter Date of Insertion: 02/22/24 Urinary Catheter Time of Insertion: 08:50 Date Urinary Catheter Removed: 02/23/24 Time Urinary Catheter Discontinued: 06:12 Data 02/23/24 04:00 02/23/24 04:00 Other Labs: Trop T Baseline: Pending Trop T 120: Pending UA unremarkable. EKG: EKG shows sinus tachycardia, with PVC, and 2 to [address] depression in leads I, II, V3, V4, V5 and V6. Serial EKG: Shows return to sinus rhythm, with reduction of ST depression in the leads noted above. A&P Assessment and plan (1) Chest pain: Patient consulted to us for new onset chest pain/pressure while admitted to the floor post right hip arthroplasty. Nursing reported patient was having chest pressure and initial EKG revealed ST depression in multiple precordial leads. Serial EKG shows improvement in ST depression. Serial Troponin-pending Morphine 2mg, IVP, Q4H PRN Weight based heparin protocol. Nitroglycerin 0.5 inch, Topical, Q6H Hold Losartan Aspirin administered. Cardiology consulted. Transfer patient to [facility]SU for close telemetry monitoring. Qualifiers: Chest pain type: chest pain due to myocardial ischemia Ischemic chest pain type: stable angina pectoris Qualified Code(s): I20.8 - Other forms of angina pectoris (2) Essential hypertension: (3) Primary osteoarthritis of right hip: Coding Level of Care Code 24610 Diagnoses Stable angina pectoris I20.8 Chest pain type: chest pain due to myocardial ischemia Ischemic chest pain type: stable angina pectoris Essential hypertension I10 Primary osteoarthritis of right hip M16.11 Time Spent (min) 57 Documented by User: Mohsen Steele MD 02/23/24 11:37 Providers/Reason For Consult 2 Consulting Physician/Specialty*: Dr. Mohsen Steele MD History of Present Illness History of Present Illness Kannan Ren is a 73 year old male, patient of orthopedic admitted to the hospital post total right hip arthroplasty on February 21, consulted to us for new onset chest pressure/pain postoperative day #1, shortness of breath, diaphoresis, and pallor. Patient reports 3-4 previous episodes, each very with onset. The episodes can be with exertion or at rest. He reports frequent shortness of breath and diaphoresis when he is out exerting himself or playing with his dogs. His most recent previous episode was in October 2023, after which he was placed on a cardiac event monitor. Event monitor showed baseline normal sinus rhythm with less than 1% ectopic beats. A previous nuclear stress test was performed, in August 2022 demonstrating some mild abnormalities inferior area likely attenuation. Patient history significant for osteoarthritis of the right hip, chronic pain of the right knee, dyspnea on exertion, chest pressure/chest pain, actinic keratosis, nocturia, stage IIIb CKD, GERD, hyperlipidemia, hypertension. Patient reports after resting in chair, his chest pressure, shortness of breath, and diaphoresis have resolved. Overall duration of his chest discomfort was approximately 8 minutes. Review of Systems 2 Resp: Denies: dyspnea GI: Reports: nausea; Denies: abdominal pain, vomiting, hematochezia or melena Medications/Allergies Home Medications Medication Instructions Recorded Confirmed Last Taken Type nitroglycerin 0.4 mg sublingual 0.4 mg sublingual Q5M PRN chest 10/13/23 02/21/24 Unknown Rx tablet (Nitrostat) pain #20 tabs tramadol 50 mg tablet 50 mg PO BID PRN pain #180 tabs 12/04/23 02/21/24 02/21/24 Rx losartan 50 mg tablet 50 mg PO QDAY 90 days #90 tabs 12/19/23 02/21/24 02/21/24 Rx hydrochlorothiazide 25 mg tablet 25 mg PO DAILY 02/21/24 02/21/24 02/21/24 History metoprolol succinate 25 mg 12.5 mg PO DAILY 02/21/24 02/21/24 02/21/24 History tablet,extended release 24 hr pantoprazole 40 mg tablet,delayed 40 mg PO DAILY 02/21/24 02/21/24 02/21/24 History release meloxicam 7.5 mg tablet 7.5 mg PO QDAY 90 days #90 tabs 02/22/24 02/22/24 02/21/24 Rx Allergies Allergy/AdvReac Type Severity Reaction Status Date / Time No Known Allergies Allergy Verified 02/14/24 10:08 PFSH Acute 2 PFSH: Medical History (Updated 02/23/24 @ 11:21 by Mohsen Steele MD) Chronic low back pain Osteoarthritis of multiple joints Stage 3b chronic kidney disease GERD (gastroesophageal reflux disease) Hyperlipidemia Essential hypertension Surgical History History of appendectomy History of tonsillectomy and adenoidectomy H/O vasectomy Family History Father Lung cancer Heart disease Mother Diabetes mellitus, type 2 Brother Cancer at age 62, patient cannot recall what cancer. Sister Ovarian cancer Social History Smoking and tobacco/nicotine status: former use of tobacco/nicotine Second hand smoke exposure: No Alcohol intake: never Substance/Drug Use: never Physical Exam 2 Narrative: General: Mildly uncomfortable looking patient, resting in chair, with cold towel on head. He looks visibly pale, but conversing appropriately, and is alert and oriented. Reports he is currently not in chest discomfort. HEENT: Head normocephalic, atraumatic, PERRL, no scleral icterus or injection noted, neck supple, no thyromegaly noted. CV: Normal rate and rhythm, S1-S2 noted, no murmurs, rubs, or gallops noted. Pulm: Clear to auscultation bilaterally. GI: Abdomen soft, nontender, bowel sounds present Extremities: No edema or swelling noted, capillary refill brisk < 2 seconds, peripheral pulses +2 and equal in upper and lower extremities. Skin: Mild pallor and clamminess noted. Skin warm to touch. Urinary Catheter Management: Velez: Cath Placed During This Visit: yes, but has since been removed by the nurse Data 02/23/24 04:00 02/23/24 04:00 Other Labs: Trop T Baseline: 14. Trop T 120: Pending UA unremarkable. EKG: EKG by my read shows sinus tachycardia, with PVC, and 2 to [address] depression in leads I, II, V3, V4, V5 and V6. Serial EKG: Shows return to sinus rhythm, with reduction of ST depression in the leads noted above. Chest x-ray is ordered Echocardiogram is ordered A&P Assessment and plan (1) Chest pain: Patient consulted to us for new onset chest pain/pressure while admitted to the floor post right hip arthroplasty. Nursing reported patient was having chest pressure and initial EKG revealed ST depression in multiple precordial leads. Serial EKG shows improvement in ST depression. Serial Troponin-pending Morphine 2mg, IVP, Q4H PRN Weight based heparin protocol. Nitroglycerin 0.5 inch, Topical, Q6H Hold Losartan Aspirin administered, continue 3 and 25 mg daily Cardiology consulted. Transfer patient to [facility] for close telemetry monitoring. Lipid profile in the morning, consideration of statin Consider Plavix if troponin elevation occurs Continue low-dose beta-justo Qualifiers: Chest pain type: chest pain due to myocardial ischemia Ischemic chest pain type: stable angina pectoris Qualified Code(s): I20.8 - Other forms of angina pectoris (2) Essential hypertension: Blood pressure is on the lower side. Hold losartan in the face of recent surgery, lower blood pressures (3) Primary osteoarthritis of right hip: Patient is postoperative day #1 status post right total hip arthroplasty, no obvious complications with the procedure Postoperative drop in hemoglobin is noted, but not severe Plan Mild thrombocytopenia Other medical problems as outlined in past medical history Heparin will suffice for DVT prophylaxis Will transfer to [facility], as above, and will change attending to medicine Consult Attestations 2 Medical Necessity Statement: Requires inpatient admission, following total hip arthroplasty, secondary to development of chest discomfort with EKG changes suspicious for coronary disease Diagnoses Stable angina pectoris I20.8 Chest pain type: chest pain due to myocardial ischemia Ischemic chest pain type: stable angina pectoris Essential hypertension I10 Primary osteoarthritis of right hip M16.11 Time Spent (min) 57
[2024-02-23 11:17] LABS: Troponin(5th) Baseline 14 ng/L (0-15)
--- NOTE | 2024-02-23 12:08 | ECG_ITS ---
[facility] Test Date: 2024-02-23 Pat Name: Kannan Ren Department: Room: 107 Gender: Male [employer]: : 1950 Requested By: Mohsen Beyer Order Number: [id number] Nataliia MD: Suma Austin M.D. Measurements Intervals Homer Rate: 104 P: 66 ID: [id number] QRS: -10 QRSD: 114 T: 40 QT: 355 QTc: 468 Interpretive Statements SINUS TACHYCARDIA POSSIBLE LATERAL MYOCARDIAL INFARCTION , PROBABLY OLD [30 ms Q WAVE IN I/aVL/V5/V6] ABNORMAL RHYTHM ECG INTERPRETATION BASED ON A DEFAULT AGE OF 40 YEARS Compared to ECG 02/23/2024 10:28:51 Myocardial infarct finding now present Sinus rhythm no longer present T-wave abnormality no longer present Electronically Signed On 02-23-2024 17:03:38 CDT by Suma Austin M.D. [id number]
[2024-02-23 12:11] LABS: Thyroid Stimulating Hormone 2.16 uIU/mL (0.27-4.20)
--- NOTE | 2024-02-23 12:16 | PC.OT ---
Attempted OT evaluation with pt on hold; will attempt at later time.
[2024-02-23] MEDS: acetaminophen 500 mg Tablet 1000 MG PO ×2 (12:37→20:44)
[2024-02-23] MEDS: nitroglycerin 1 gm/inch oint Pkt 0.5 INCH TOPICAL ×3 (12:37→23:26)
[2024-02-23] MEDS: heparin drip 25,000 UNIT/500 ML PREMIX 32.009999999999998 UNIT IV (12:38)
[2024-02-23] MEDS: heparin 5,000 unit/mL INJ 1 mL IV (12:39)
--- NOTE | 2024-02-23 14:37 | P.CONIM_ITS ---
Providers/Reason For Consult 2 Consulting Physician/Specialty*: Cardiovascular medicine Reason for Consult*: Chest pain Requesting Physician: Ivette Attending Physician: Jennie Cole MD Primary Care Provider: Damari Nielson DO History of Present Illness History of Present Illness Kannan Ren is a 73 year old male with no known prior history of coronary artery disease. He was admitted yesterday morning for elective total hip replacement on the right which took place without incident. Today he had an episode of chest discomfort which was associated with shortness of breath and diaphoresis. He describes it as a pressure sensation which is located in the middle of his chest. He was seen by Dr. Steele who transferred him to the cardiac stepdown unit. He was placed on aspirin and heparin. He has no known history of organic heart disease. He tells me that he has had several of these episodes through the years. 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 He was worked up at that time and it was negative. The second 1 was 10 years ago when he was giving blood. He had 2 episodes during the calendar year 2022. 1 of those when he was driving home from his brother's and the other was at rest. He has had 1 other episode this year. All of these are similar in nature and they usually go away on their own when he just sits or lies down and puts his head back. His troponins are 14 and 15. His white blood cell count is 12.66. His platelet count is slightly low 126. He has a history of mild renal sufficiency however his BUN and creatinine are 19 and 1.2 respectively on this occasion. His EKG on the of this month showed an incomplete right bundle branch block and minimal ST depression. Yesterday's EKG showed minimal ST segment depression and today's EKG showed perhaps slightly more ST depression during the episode but it was not significant. There was no ST elevation. As I see him now he is completely free of any discomfort. He has Nitropaste in place. Review of Systems 2 Narrative: Review of systems is negative Medications/Allergies Home Medications Medication Instructions Recorded Confirmed Last Taken Type nitroglycerin 0.4 mg sublingual 0.4 mg sublingual Q5M PRN chest 10/13/23 02/21/24 Unknown Rx tablet (Nitrostat) pain #20 tabs tramadol 50 mg tablet 50 mg PO BID PRN pain #180 tabs 12/04/23 02/21/24 02/21/24 Rx losartan 50 mg tablet 50 mg PO QDAY 90 days #90 tabs 12/19/23 02/21/24 02/21/24 Rx hydrochlorothiazide 25 mg tablet 25 mg PO DAILY 02/21/24 02/21/24 02/21/24 History metoprolol succinate 25 mg 12.5 mg PO DAILY 02/21/24 02/21/24 02/21/24 History tablet,extended release 24 hr pantoprazole 40 mg tablet,delayed 40 mg PO DAILY 02/21/24 02/21/24 02/21/24 History release meloxicam 7.5 mg tablet 7.5 mg PO QDAY 90 days #90 tabs 02/22/24 02/22/24 02/21/24 Rx Allergies Allergy/AdvReac Type Severity Reaction Status Date / Time No Known Allergies Allergy Verified 02/14/24 10:08 Current Medications Generic Name Dose Route Start Last Admin Trade Name Jagq PRN Reason Stop Dose Admin Acetaminophen 1,000 mg 02/23/24 12:15 02/23/24 12:37 Acetaminophen 500 Mg Tablet PO 1,000 mg Q8H [facility] Administration Aspirin 325 mg 02/23/24 09:00 02/23/24 08:31 Aspirin 325 Mg Ec Tablet PO 325 mg DAILY SARAH Administration Calcium Carbonate 1,000 mg 02/22/24 18:00 02/23/24 08:31 Calcium Carbonate 500 Mg Chew Tablet PO 1,000 mg BID SARAH Administration Chlorhexidine Gluconate 30 ml 02/22/24 13:10 02/23/24 08:33 Chlorhexidine Gluconate 0.12% Btl 473 Ml MUCOUS MEM 30 ml QID SARAH Administration Heparin Sodium (Porcine) 0 unit 02/23/24 10:40 02/23/24 12:39 Heparin 5,000 Unit/Ml Inj 1 Ml IV 5,800 unit PRN PRN Administration Heparin weight-base protocol Protocol Heparin Sodium/Sodium Chloride 25,000 unit in 500 mls @ 0 mls/hr 02/23/24 10:45 02/23/24 12:38 Heparin Drip IV 14 unit/kg/hr .Q0M ASRAH 32.01 mls/hr Administration Protocol Per Protocol Metoprolol Succinate 12.5 mg 02/23/24 09:00 02/23/24 08:32 Metoprolol Succinate Er (24 Hr) 25 Mg Tablet PO 12.5 mg DAILY SARAH Administration Multivitamins Therapeutic 1 tab 02/23/24 09:00 02/23/24 08:31 Multivitamin Therapeutic Tablet PO 1 tab DAILY SARAH Administration Mupirocin 1 applic 02/22/24 18:00 02/23/24 08:33 Mupirocin Oint 22 Gm NASAL 02/27/24 17:59 1 applic BID SARAH Administration Protocol Nitroglycerin 0.5 inch 02/23/24 10:45 02/23/24 12:37 Nitroglycerin 1 Gm/Inch Oint Pkt TOPICAL 0.5 inch Q6H SARAH Administration Ondansetron HCl 4 mg 02/22/24 13:10 02/23/24 09:23 Ondansetron 2 Mg/Ml Sdv 2 Ml IVP 4 mg Q6H PRN Administration NAUSEA AND VOMITING Oxycodone HCl 5 - 10 mg 02/22/24 13:10 02/23/24 06:03 Oxycodone 5 Mg Ir Tab/Cap PO 5 mg Q4H PRN Administration MODERATE TO SEVERE PAIN Pantoprazole Sodium 40 mg 02/23/24 09:00 02/23/24 08:[address] 40 Mg Tablet PO 40 mg DAILY SARAH Administration Polysaccharide Iron Complex 150 mg 02/22/24 18:00 02/23/24 08:31 Iron Polysaccharide Complex 150 Mg Capsule PO 150 mg BIDWM SARAH Administration Senna/Docusate Sodium 2 tab 02/22/24 18:00 02/23/24 08:31 Sennosides-Docusate Tablet PO 2 tab BID SARAH Administration Vitamin D 1,000 unit 02/23/24 09:00 02/23/24 08:31 Cholecalciferol (Vitamin D3) 1,000 Unit Tablet PO 1,000 unit DAILY SARAH Administration PFSH Acute 2 PFSH: Medical History (Updated 02/23/24 @ 11:21 by Mohsen Steele MD) Chronic low back pain Osteoarthritis of multiple joints Stage 3b chronic kidney disease GERD (gastroesophageal reflux disease) Hyperlipidemia Essential hypertension Surgical History History of appendectomy History of tonsillectomy and adenoidectomy H/O vasectomy Family History Father Lung cancer Heart disease Mother Diabetes mellitus, type 2 Brother Cancer at age 62, patient cannot recall what cancer. Sister Ovarian cancer Social History Smoking and tobacco/nicotine status: former use of tobacco/nicotine Second hand smoke exposure: No Alcohol intake: never Substance/Drug Use: never Vitals/I&O/Wt Last Vital Signs Temp 98.0 F 02/23/24 12:00 Pulse 77 02/23/24 12:00 Resp 14 02/23/24 12:00 BP 111/73 02/23/24 12:00 Pulse Ox 94 02/23/24 12:00 O2 Del Method Nasal Cannula 02/23/24 12:00 O2 Flow Rate 2 02/22/24 20:00 02/22/24 02/23/24 02/23/24 22:59 06:59 14:59 Intake Total 330 / 1680 390 / 2070 390 / 390 Output Total 800 / 1600 300 / 1900 Balance -470 / 80 90 / 170 390 / 390 Weight last 48 hrs Weight 252 lb Weight 230 lb Weight 230 lb 11.301 oz Physical Exam 2 Narrative: GENERAL: In general he looks and feels well HEENT: Exam within normal limits. NECK: Supple without jugular vein distention. The carotid upstroke is normal without bruits. BACK: Exam normal. LUNGS: Clear. HEART: Regular rate and rhythm. ABDOMEN: Benign without organomegaly or tenderness. EXTREMITIES: No edema. NEUROLOGIC: Exam normal. SKIN: Unremarkable. Urinary Catheter Management: Velez: Cath Placed During This Visit: yes, but has since been removed by the nurse Reason for Continuing Indwelling Catheter: Decision to DC Catheter Urinary Catheter Date of Insertion: 02/22/24 Urinary Catheter Time of Insertion: 08:50 Date Urinary Catheter Removed: 02/23/24 Time Urinary Catheter Discontinued: 06:12 Data 02/23/24 04:00 02/23/24 04:00 A&P Assessment and plan (1) Essential hypertension: (2) Hyperlipidemia: Qualifiers: Hyperlipidemia type: mixed hyperlipidemia Qualified Code(s): E78.2 - Mixed hyperlipidemia (3) Chest pain: Qualifiers: Chest pain type: chest pain due to myocardial ischemia Ischemic chest pain type: stable angina pectoris Qualified Code(s): I20.8 - Other forms of angina pectoris (4) Stage 3b chronic kidney disease: Plan I am not sure exactly what these episodes are. They certainly do sound like they could be cardiac given the type of symptoms he is having. However, his EKG findings are relatively minimal and somewhat to my surprise his troponins are negative. Additionally these have been going on for several years and have not resulted in any evidence of coronary artery disease. For now I am going to watch him and see how he does. If he starts having more episodes this we will do an angiogram. If he is still here on Monday and has not had any further episodes we will do a stress test. Consult Attestations 2 Medical Necessity Statement: Admission for convalescence after hip surgery and chest pain. and Moderate Time for a total of 40 minutes, includes reviewing past or interval history, examining/interviewing patient, placing orders, counseling patient/family/other support, updating patient/family/other support, discussing plan of care with staff, communicating with other healthcare providers and documenting encounter Diagnoses Essential hypertension I10 Mixed hyperlipidemia E78.2 Hyperlipidemia type: mixed hyperlipidemia Stable angina pectoris I20.8 Chest pain type: chest pain due to myocardial ischemia Ischemic chest pain type: stable angina pectoris Stage 3b chronic kidney disease N18.32
--- NOTE | 2024-02-23 15:58 | ECG_ITS ---
[facility] Test Date: 2024-02-23 Pat Name: Kannan Ren Department: Room: 107 Gender: Male Server Assistant: : 1950 Requested By: Mohsen Beyer Order Number: [id number] Nataliia MD: Suma Austin M.D. Measurements Intervals [place] Rate: 70 P: 66 [place]: 166 QRS: -1 QRSD: 106 T: 43 QT: 394 QTc: 425 Interpretive Statements SINUS RHYTHM ST DEVIATION AND MODERATE T-WAVE ABNORMALITY, CONSIDER ANTERIOR ISCHEMIA [-0.1+ mV T-WAVE IN V3/V4] Compared to ECG 02/23/2024 11:23:53 T-wave abnormality now present Possible ischemia now present Sinus tachycardia no longer present Myocardial infarct finding no longer present Electronically Signed On 02-23-2024 17:04:14 CDT by Suma Austin M.D. [id number]
--- NOTE | 2024-02-23 17:03 | P.PN_ITS ---
Subjective 2 Subjective: Patient was admitted to the cardiac stepdown unit during episode of chest pain and diaphoresis. Medications: Reviewed: Yes Vitals/I&O/Wt Last Vital Signs Temp 97.7 F 02/23/24 16:00 Pulse 68 02/23/24 16:00 Resp 18 02/23/24 16:00 BP 118/70 02/23/24 16:00 Pulse Ox 96 02/23/24 16:00 O2 Del Method Nasal Cannula 02/23/24 16:00 O2 Flow Rate 2 02/22/24 20:00 02/23/24 02/23/24 02/23/24 06:59 14:59 22:59 Intake Total 390 / 2070 390 / 390 Output Total 300 / 1900 Balance 90 / 170 390 / 390 Weight last 48 hrs Weight 252 lb Weight 230 lb Weight 230 lb 11.301 oz Physical Exam 2 Const: COMMON NORMALS: no acute distress, average body habitus, patient oriented x3 and alert GENERAL APPEARANCE: cooperative and comfortable O RIENTATION/CONSCIOUSNESS: Yes awake HENMT: COMMON NORMALS: normocephalic and atraumatic HEAD & SCALP: n ormocephalic and atraumatic Eye: GENERAL EYE: appearance normal, both eyes and all related structures Chest: COMMONS NORMALS: normal inspection of the chest Resp: COMMON NORMALS: normal respiratory effort EFFORT & INSPECTION: Yes able to speak in complete sentences and Yes symmetric chest movement Extremity: RIGHT LOWER EXTREMITY: Yes hip joint (Dressing is dry and intact.) Right hip: Yes ROM (Not evaluated.) and Yes neurovascular exam (Intact distally.) Neuro: COMMON NORMALS: patient oriented x3 SENSORIUM/ORIENTATION: Yes alert Psych: COMMON NORMALS: mental status grossly normal APPEARANCE: Yes grossly normal ATTITUDE: Yes calm and Yes engaged ATTENTION/CONCENTRATION: Yes attention grossly intact Skin: COMMON NORMALS: no rashes or lesions noted GENERAL SKIN EXAM: no rashes or lesions noted Urinary Catheter Management: Velez: Cath Placed During This Visit: yes, but has since been removed by the nurse Reason for Continuing Indwelling Catheter: Decision to DC Catheter Urinary Catheter Date of Insertion: 02/22/24 Urinary Catheter Time of Insertion: 08:50 Date Urinary Catheter Removed: 02/23/24 Time Urinary Catheter Discontinued: 06:12 Data 02/24/24 03:33 02/24/24 03:33 A&P Assessment and plan (1) Primary osteoarthritis of right hip: Patient underwent same-day surgery for right total hip arthroplasty. On the first postoperative day, he was doing well, until he got up to use the restroom, and he became diaphoretic. He notes he took about 5 steps, and someone put a chair behind him for him to sit down. His symptoms resolved at that point, but as soon as he got up and took approximately 5 more steps, they returned. Therefore, he was transferred to the cardiac stepdown unit for further evaluation. He has been transferred to the medical service as well. Attestations 2 Medical Necessity Statement*: Ongoing treatment following right total hip arthroplasty Coding Level of Care Code Acute Code for [facility] Diagnoses Primary osteoarthritis of right hip M16.11
[2024-02-23 17:43] LABS: Troponin 5 6HR 15.64 ng/L (0-15); Troponin 5 6HR Delta 1.64 ng/L (0-12)
--- NOTE | 2024-02-23 18:14 | ECG_ITS ---
[facility] Test Date: 2024-02-23 Pat Name: Kannan Ren Department: Room: 107 Gender: Male Surg Physician Asst: : 1950 Requested By: Mohsen Beyer Order Number: [id number] Nataliia MD: Bay Matias M.D. Measurements Intervals [place] Rate: 96 P: 65 [place]: 153 QRS: 9 QRSD: 100 T: 41 QT: 368 QTc: 467 Interpretive Statements SINUS RHYTHM MODERATE ST DEPRESSION [0.05+ mV ST DEPRESSION] Compared to ECG 02/23/2024 15:58:35 ST (T wave) deviation now present T-wave abnormality no longer present Possible ischemia no longer present Electronically Signed On 02-24-2024 9:18:11 CDT by Bay Matias M.D. [id number]
[2024-02-23] MEDS: nitroglycerin 0.4 mg sublingual Tablet 0.400000000000000022 MG SUBLINGUAL (18:41)
[2024-02-23 20:10] LABS: Partial Thromboplastin Time > 250.0 SECONDS (23.9-36.7)
[2024-02-23] MEDS: atorvastatin 40 mg Tablet PO (20:44)
--- NOTE | 2024-02-23 21:04 | PC.NURSE ---
pt PTT was critical at greater than 250, contacted MD AURELAI gave orders to stop heparin for 4 hours and repeat PTT
[2024-02-24] VITALS (58 sets, daily range): BP systolic 87–149; BP diastolic 60–116; PULSE 62–108; RESP 13–37; TEMP 36.5–37.3; O2SAT 87–97
[2024-02-24 00:58] LABS: Partial Thromboplastin Time 56.5 SECONDS (23.9-36.7)
--- NOTE | 2024-02-24 01:36 | XACV_ITS ---
Exam Room: [facility] Ht: 183 cm Wt: 110 kg BSA: 2.39 m2 Gender: Male : 1950 Any Known Allergies: No known allergies Exam Priority: Routine Procedure(s): Procedure Description: Diagnostic procedure JOSE Polly; Diagnostic Cath Status: Urgent Diagnostic Findings * Unusual episodes of chest pain, shortness of breath and diaphoresis without troponin elevation. Persist despite medications and other measures. Angiography indicated to assess coronary arteries. * Procedure done from the right radial artery. Right coronary artery dominance. The left main coronary artery shows 20% stenosis in the ostium. The circumflex has a 30 to 40% stenosis in the midportion of the second obtuse marginal branch. Otherwise the circumflex is normal. The left anterior descending gives off multiple diagonal and septal branches. It is normal. The right coronary artery is a large dominant vessel and is normal.. * Left ventriculography was not performed secondary to renal insufficiency. Conclusions 1. Minimal nonobstructive coronary artery disease. Recommendations * None. Interventional RX Recommendation: none Diagnostic RX Recommendation: none Anticoagulation: Heparin Pressures Phase:Rest AO : 80 / 54 ( 66 ) @ 8:09:00 AM Clinical Evaluation EBL: 5mL-10mL Procedural Details Procedure Consent Obtained. Current Diagnosis : NSTEMI. Pre-Procedure Time Out. Identified patient by full name and date of as verbalized by the patient/guarantor. Does the consent match the physician's order: Yes. Accurate & Complete Informed Consent: Yes. Inpatient/Outpatient History & Physical on Chart: Yes. If H&P is completed, is and addenduem needed: No; If yes, is the addendum complete: N/A. Visualize and Verify Site with Patient/Guarantor: N/A. Relevant Radiology Images available: Yes. Pre-op teaching completed and patient verbalized understanding. The risks, benefits, and alternatives of sedation and/or procedure were discussed by physician. The patient agrees to continue. Procedure started. [facility] Clinical Fraility Score: 3: Managing Well. Voip Network Engineer Indications: ACS > 24 hours. Chest Pain Symptom Assessment: Typical Angina Symptoms. Correct patient, site and procedure confirmed by cath team. Current diagnosis: NSTEMI. PERRLA. Strong, equal hand vp care management bilaterally. Lungs clear x 5 lobes. IV Site on Arrival: 18 gauge in the left anticubital. IV Fluids: 0.9% NaCl at KVO. 0 mL infused prior to bolt labeler. Physician arrived. Physician scrubbed in. Immediate Pre-Procedure Time Out. Correct Patient: Yes; Correct Procedure: Yes; Correct Site: Yes; Correct Patient Position: Yes; Correct Supplies: Yes; Dried Flammable Prep: Yes; Blood Products Available: N/A;. Lidocaine 1% infiltrated to the right radial. Arterial access obtained. A 5 uzbek TIG catheter in over wire. Multiple views taken of left coronary artery. Catheter redirected to the RCA. Multiple views taken of right coronary artery. Catheter removed over the exchange wire. A TR Band was successful obtaining hemostatsis at the Right Radial artery insertion site. Vital chart was stopped. Physician scrubbed out. Post Procedure: Pulses reassessed and unchanged. PERRLA. Strong, equal hand vp care management bilaterally. No VTE prophylaxis required. Medication's Wasted: Lidocaine 1% = 18 mL. Medication's Wasted: Heparin = 1000 units. Medication's Wasted: Other = Fentanyl 75mcg Versed 1 mg. Total IV fluids: 30 mL. Post-op diagnosis: Normal Coronaries. Complications: None. Estimated blood loss: 5mL-10mL. Responsiveness - Normal response to verbal stimuli; alert and oriented, PERRLA. Airway - Unaffected, no intervention required; spontaneous ventilation. Circulation: W/N/L, pulses unchanged. Nausea/Vomiting: No. Procedure completed. Patient transferred by bed to 1st floor. Access Site Site: Right Radial artery Sheath Size: 6 Fr Hemostasis Method: TR Band Hemostasis Success: Successful Procedure Medications Start: 6:57 AM Stop: 6:57 AM Medication: Versed 1 mg and Fentanyl 25 mcg Amount: 1 Route: I.V. Start: 7:06 AM Stop: 7:06 AM Medication: Nitrogylcerin Amount: 200 mcg Route: I.A. Start: 7:13 AM Stop: 7:13 AM Medication: Heparin Amount: 5000 units Route: I.V. I, the attending physician, have reviewed and verified all procedure medications. Yes, all medications given per verbal order History/Risk Factors Hypertension: Yes Dyslipidemia: No Peripheral Arterial Disease (PAD): No Myocardial Infarction (TX): No Obesity: No Renal Disease: No Tobacco Use: Former Prior Interventions PCI: No CABG: No Valve Surgery: No Report Signatures Finalized by Dr. Bay Matias MD on 02/24/2024 07:27 AM
[2024-02-24 04:20] LABS: Basophils # 0.1 10^3/uL (0.0-0.1); Basophils % 0.6 %; Eosinophils # 0.3 10^3/uL (0.0-0.8); Eosinophils % 2.2 %; Hematocrit 32.3 % (37-53); Lymphocytes # 1.4 10^3/uL (0.8-4.8); Lymphocytes % 10.8 %; Mean Corpuscular HGB Conc 32.5 g/dL (30-55); Mean Corpuscular Volume 89.2 fl (82-101); Mean Platelet Volume 11.4 fL (7.4-10.4); Monocytes # 1.2 10^3/uL (0.2-0.9); Monocytes % 9.5 %; Neutrophils # 9.88 10^3/uL (1.8-7.7); Neutrophils % 76.2 %; Nucleated Red Blood Cells % 0 %; Platelet Count 116 10^3/cmm (157-399); Red Blood Count 3.62 10^6/uL (3.85-5.65); Red Cell Distribution Width 13.8 % (12.1-15.1); White Blood Count 12.96 10^3/uL (3.29-11.43)
[2024-02-24] MEDS: nitroglycerin 1 gm/inch oint Pkt 0.5 INCH TOPICAL (04:43)
[2024-02-24] MEDS: acetaminophen 500 mg Tablet 1000 MG PO ×2 (04:44→12:42)
[2024-02-24 04:45] LABS: Chol HDL Ratio 2.95 mg/dL (1.0-5.00); Cholesterol 124 mg/dL (0-200); HDL Cholesterol 42 mg/dL (60-100); LDL Cholesterol Calculated 62 mg/dL (50-129); LDL HDL Ratio 1.48 RATIO (0.00-3.22); Triglycerides 98 mg/dL (0-150)
[2024-02-24 04:47] LABS: Anion Gap 14.1 (5-19); Blood Urea Nitrogen 23 mg/dL (8-23); Calcium 8.5 mg/dL (8.5-10.5); Carbon Dioxide 27 mmol/L (22-29); Chloride 101 mmol/L (98-107); Creatinine Clr Calc Pharmacy 75.3572; Glucose 118 mg/dL (65-115); Osmolality Calculated 291 mOsm/kg (285-295); Potassium 4.1 mmol/L (3.5-5.1); Sodium 138 mmol/L (136-145)
[2024-02-24 04:50] LABS: Partial Thromboplastin Time 168.6 SECONDS (23.9-36.7)
[2024-02-24] MEDS: ondansetron 2 mg/ML SDV 2 mL 4 MG IVP (05:52)
--- NOTE | 2024-02-24 06:41 | P.PN_ITS ---
Subjective 2 Subjective: Kannan had another episode of chest pain, shortness of breath and diaphoresis earlier last evening while using the bathroom. It basically resolved spontaneously. His EKG was unchanged. This morning he feels okay. Vitals/I&O/Wt Last Vital Signs Temp 98.2 F 02/24/24 04:00 Pulse 106 H 02/24/24 04:43 Resp 18 02/24/24 04:00 BP 130/69 02/24/24 04:43 Pulse Ox 95 02/24/24 04:00 O2 Del Method Nasal Cannula 02/24/24 04:00 O2 Flow Rate 2 02/22/24 20:00 02/23/24 02/23/24 02/24/24 14:59 22:59 06:59 Intake Total 390 / 390 244.877 / 634.877 109.333 / 744.210 Output Total 450 / 450 200 / 650 Balance 390 / 390 -205.123 / 184.877 -90.667 / 94.210 Weight last 48 hrs Weight 242 lb 11.2 oz Weight 242 lb 14 oz Weight 252 lb Weight 230 lb Weight 230 lb 11.301 oz Physical Exam 2 Narrative: GENERAL: In general he looks and feels well this morning HEENT: Exam within normal limits. NECK: Supple without jugular vein distention. The carotid upstroke is normal without bruits. BACK: Exam normal. LUNGS: Clear. HEART: Regular rate and rhythm. ABDOMEN: Benign without organomegaly or tenderness. EXTREMITIES: No edema. NEUROLOGIC: Exam normal. SKIN: Unremarkable. Urinary Catheter Management: Velez: Cath Placed During This Visit: yes, but has since been removed by the nurse Reason for Continuing Indwelling Catheter: Decision to DC Catheter Urinary Catheter Date of Insertion: 02/22/24 Urinary Catheter Time of Insertion: 08:50 Date Urinary Catheter Removed: 02/23/24 Time Urinary Catheter Discontinued: 06:12 Data 02/24/24 03:33 02/24/24 03:33 A&P Assessment and plan (1) Essential hypertension: (2) Hyperlipidemia: Qualifiers: Hyperlipidemia type: mixed hyperlipidemia Qualified Code(s): E78.2 - Mixed hyperlipidemia (3) Chest pain: Qualifiers: Chest pain type: chest pain due to myocardial ischemia Ischemic chest pain type: stable angina pectoris Qualified Code(s): I20.8 - Other forms of angina pectoris (4) FISHER (dyspnea on exertion): (5) Obesity (BMI 30.0-34.9): (6) Stage 3b chronic kidney disease: Plan We need to proceed with cardiac catheterization. Unfortunately I think you will continue to have these episodes until we figure out what it is. We will proceed at 7:00 this morning. Attestations 2 Medical Necessity Statement*: Hospitalization for hip replacement, chest pain. and Moderate Time for a total of 30 minutes, includes reviewing past or interval history, examining/interviewing patient, placing orders, counseling patient/family/other support, updating patient/family/other support, discussing plan of care with staff, communicating with other healthcare providers and documenting encounter Diagnoses Essential hypertension I10 Mixed hyperlipidemia E78.2 Hyperlipidemia type: mixed hyperlipidemia Stable angina pectoris I20.8 Chest pain type: chest pain due to myocardial ischemia Ischemic chest pain type: stable angina pectoris FISHER (dyspnea on exertion) R06.09 Obesity (BMI 30.0-34.9) E66.9 Stage 3b chronic kidney disease N18.32
[2024-02-24] MEDS: cholecalciferol (vitamin D3) 1,000 unit Tablet 1000 UNIT PO (08:36)
[2024-02-24] MEDS: calcium carbonate 500 mg Chew Tablet 1000 MG PO (08:36)
[2024-02-24] MEDS: aspirin 325 mg EC Tablet PO (08:36)
[2024-02-24] MEDS: iron polysaccharide complex 150 mg Capsule PO (08:37)
[2024-02-24] MEDS: metoprolol succinate ER (24 HR) 25 mg Tablet 12.5 MG PO (08:37)
[2024-02-24] MEDS: chlorhexidine gluconate 0.12% Btl 473 mL 30 ML MUCOUS MEM (08:37)
[2024-02-24] MEDS: multivitamin therapeutic Tablet 1 TAB PO (08:37)
[2024-02-24] MEDS: sennosides-docusate Tablet 2 TAB PO (08:37)
[2024-02-24] MEDS: pantoprazole DR 40 mg Tablet PO (08:37)
[2024-02-24] MEDS: sodium chloride 0.9% 1,000 ML 100 ML IV (08:40)
--- NOTE | 2024-02-24 08:41 | ECG_ITS ---
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 Measurements Intervals [place] Rate: 79 P: 66 [place]: 169 QRS: 14 QRSD: 99 T: 43 QT: 377 QTc: 434 Interpretive Statements SINUS RHYTHM NONSPECIFIC ST & T-WAVE ABNORMALITY Compared to ECG 02/23/2024 18:23:57 T-wave abnormality now present ST (T wave) deviation no longer present Electronically Signed On 02-24-2024 9:19:14 CDT by Bay Matias M.D. [id number]
[2024-02-24 09:04] LABS: Glucose Point of Care 147 mg/dL (70-110)
--- NOTE | 2024-02-24 12:27 | USR_ITS ---
PROCEDURE INFORMATION: Exam: US Duplex Lower Extremity Veins, Bilateral Exam date and time: 02/24/2024 2:01 PM Age: 73 years old Clinical indication: Screening exam; R/O dvt TECHNIQUE: Imaging protocol: Real-time duplex ultrasound of the bilateral extremities with 2-D larkin scale, color Doppler flow and spectral waveform analysis including responses to compression and other maneuvers (when performed) with image documentation. Complete exam focused on the lower extremity veins. COMPARISON: CR (KNEE LAT, KNEE, KNEE LAT) 01/22/2024 1:27 PM FINDINGS: Right deep veins: Unremarkable. The common femoral, femoral, proximal profunda femoral and popliteal veins are patent without thrombus. Normal Doppler waveforms. Normal compressibility and/or augmentation response. Left deep veins: The common femoral, femoral, proximal profunda femoral and popliteal veins are patent without thrombus. Normal Doppler waveforms. Normal compressibility and/or augmentation response. Superficial veins: Greater saphenous veins at the saphenofemoral junctions are patent bilaterally without thrombus. Soft tissues: Unremarkable. US/CV venous duplex [facility] [id number] IMPRESSION: No evidence of deep vein thrombosis.
--- NOTE | 2024-02-24 12:47 | PM.DCS ---
Discharge Providers Date of Admission: 02/23/24 10:23 Date of Discharge: February 24, 2024 Attending Provider at Admission: Jennie Cole MD Attending Provider at Discharge: Jennie Cole MD Primary Care Provider: Damari Nielson DO Diagnoses at Discharge Discharge Diagnosis (1) Essential hypertension: Status: Chronic (2) Hyperlipidemia: Status: Chronic Qualifiers: Hyperlipidemia type: mixed hyperlipidemia Qualified Code(s): E78.2 - Mixed hyperlipidemia (3) Chest pain: Status: Acute Qualifiers: Chest pain type: chest pain due to myocardial ischemia Ischemic chest pain type: stable angina pectoris Qualified Code(s): I20.8 - Other forms of angina pectoris (4) FISHER (dyspnea on exertion): Status: Acute (5) Obesity (BMI 30.0-34.9): Status: Acute (6) Stage 3b chronic kidney disease: Status: Acute Reason for Visit Reason for Visit: M16.11 Hospital Course Hospital Course Kannan Ren is a 73 year old male, patient of orthopedic admitted to the hospital post total right hip arthroplasty, consulted to us for new onset chest pressure/pain, shortness of breath, diaphoresis, and pallor. Patient reports 3-4 previous episodes, each very with onset. The episodes can be with exertion or at rest. He reports frequent shortness of breath and diaphoresis when he is out exerting himself or playing with his dogs. He reports that this has been ongoing for approximately 20 years, and has had a stress test 20 years ago that was normal. Each previous episode has improved with nitroglycerin and rest. He had a stress test with [facility] in 2021 which was normal. His most recent previous episode was in October 2023, after which he was placed on a cardiac event monitor. Event monitor showed baseline normal sinus rhythm with less than 1% ectopic beats. Patient history significant for osteoarthritis of the right hip, chronic pain of the right knee, dyspnea on exertion, chest pressure/chest pain, actinic keratosis, nocturia, stage IIIb CKD, GERD, hyperlipidemia, hypertension. Patient reports after resting in chair, his chest pressure, shortness of breath, and diaphoresis have resolved. Patient was admitted to [facility] for severe degenerative osteoarthritis of the right hip, status post right total hip arthroplasty, tolerated procedure well, discharged home, discharged on oxycodone to be used sparingly for pain control, do not drive operate machinery or drink while taking medication, aspirin 325 mg for DVT prophylaxis During his hospitalization patient had complaints of chest pain with exertion, with EKG changes, no significant delta troponin, cardiology was consulted, underwent coronary angiography, no obstructive CAD,will be discharged home, if any recurrent chest pain to go to emergency room, discharged on aspirin, statin, beta-justo, nitro as needed Physical Exam Const: COMMON NORMALS: no acute distress and patient oriented x3 Resp: COMMON NORMALS: normal respiratory effort, No retractions, No use of accessory muscles and clear to auscultation bilaterally AUSCULTATION: clear to auscultation bilaterally Cardio: COMMON NORMALS: regular rate, regular rhythm, S1 normal heart sound present and S2 normal heart sound present RATE: regular rate RHYTHM: regular rhythm HEART SOUNDS: S1 normal heart sound present and S2 normal heart sound present GI: COMMON NORMALS: Normal to inspection, nondistended, normoactive bowel sounds present and non-tender Extremity: COMMON NORMALS: no pedal edema Neuro: COMMON NORMALS: patient oriented x3 Psych: COMMON NORMALS: mental status grossly normal Urinary Catheter Management: Velez: Cath Placed During This Visit: yes, but has since been removed by the nurse Reason for Continuing Indwelling Catheter: Decision to DC Catheter Urinary Catheter Date of Insertion: 02/22/24 Urinary Catheter Time of Insertion: 08:50 Date Urinary Catheter Removed: 02/23/24 Time Urinary Catheter Discontinued: 06:12 Discharge Data Studies Completed and Pending Completed Studies During Hospitalization Category Date Time Status PROFESSOR OF 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 request for service Routine Exams 02/24/24 01:36 Completed XR chest 1V portable [id number] Routine Exams 02/23/24 10:42 Completed XR pelvis 1-2V* [id number] Routine Exams 02/22/24 12:08 Completed Pending at discharge Category [place] [id number] Stat Ultrasound 02/24/24 12:27 Ordered Laboratory Results WBC 12.96 10^3/uL (3.29-11.43) H 02/24/24 03:33 RBC 3.62 10^6/uL (3.85-5.65) L 02/24/24 03:33 Hgb 10.50 g/dL (11.27-16.99) L 02/24/24 03:33 Hct 32.3 % (37-53) L 02/24/24 03:33 MCV 89.2 fl (82-101) 02/24/24 03:33 MCH 29.0 pg (27-33) 02/24/24 03:33 MCHC 32.5 g/dL (30-55) 02/24/24 03:33 RDW 13.8 % (12.1-15.1) 02/24/24 03:33 Plt Count 116 10^3/cmm (157-399) L 02/24/24 03:33 MPV 11.4 fL (7.4-10.4) H 02/24/24 03:33 Neut % (Auto) 76.2 % 02/24/24 03:33 Lymph % (Auto) 10.8 % 02/24/24 03:33 Garvin % (Auto) 9.5 % 02/24/24 03:33 Eos % (Auto) 2.2 % 02/24/24 03:33 Baso % (Auto) 0.6 % 02/24/24 03:33 Neut # (Auto) 9.88 10^3/uL (1.8-7.7) H 02/24/24 03:33 Lymph # (Auto) 1.4 10^3/uL (0.8-4.8) 02/24/24 03:33 Garvin # (Auto) 1.2 10^3/uL (0.2-0.9) H 02/24/24 03:33 Eos # (Auto) 0.3 10^3/uL (0.0-0.8) 02/24/24 03:33 Baso # (Auto) 0.1 10^3/uL (0.0-0.1) 02/24/24 03:33 Nucleated RBC % (auto) 0 % 02/24/24 03:33 Nucleated RBCs # 0.0 /100WBC 02/24/24 03:33 APTT 168.6 SECONDS (23.9-36.7) H* D 02/24/24 03:33 Sodium 138 mmol/L (136-145) 02/24/24 03:33 Potassium 4.1 mmol/L (3.5-5.1) 02/24/24 03:33 Chloride 101 mmol/L (98-107) 02/24/24 03:33 Carbon Dioxide 27 mmol/L (22-29) 02/24/24 03:33 Anion Gap 14.1 (5-19) 02/24/24 03:33 BUN 23 mg/dL (8-23) 02/24/24 03:33 Creatinine 1.4 mg/dL (0.7-1.2) H 02/24/24 03:33 GFR Calculation Not Reportable 02/24/24 03:33 Glucose 118 mg/dL (65-115) H 02/24/24 03:33 POC Glucose 147 mg/dL (70-110) H 02/24/24 08:30 Calculated Osmolality 291 mOsm/kg (285-295) 02/24/24 03:33 Calcium 8.5 mg/dL (8.5-10.5) 02/24/24 03:33 Magnesium 2.0 mg/dL (1.7-2.3) 02/24/24 03:33 Troponin T Baseline 14 ng/L (0-15) 02/23/24 10:45 Troponin T 120 Minute 15.40 ng/L (0-15) H 02/23/24 13:12 Delta Troponin T 1.40 ABS# (0-10) 02/23/24 13:12 Troponin T Hi Sens 6Hr 15.64 ng/L (0-15) H 02/23/24 17:02 Troponin T Hi Sens 6Hr Delta 1.64 ng/L (0-12) 02/23/24 17:02 Triglycerides 98 mg/dL (0-150) 02/24/24 03:33 Cholesterol 124 mg/dL (0-200) 02/24/24 03:33 LDL Cholesterol, Calc 62 mg/dL (50-129) 02/24/24 03:33 HDL Cholesterol 42 mg/dL (60-100) L 02/24/24 03:33 LDL/HDL Ratio 1.48 RATIO (0.00-3.22) 02/24/24 03:33 Cholesterol/HDL Ratio 2.95 mg/dL (1.0-5.00) 02/24/24 03:33 TSH 2.16 uIU/mL (0.27-4.20) 02/23/24 10:45 Vitals Last Vital Signs Temp 97.7 F 02/24/24 11:36 Pulse 108 H 02/24/24 11:36 Resp 16 04/20/24 11:36 BP 142/116 02/24/24 11:36 Pulse Ox 93 02/24/24 09:55 O2 Del Method Room Air 02/24/24 11:36 O2 Flow Rate 2 02/22/24 20:00 Discharge Plan Discharge Patient Disposition: Home Condition: Stable Prescriptions: New atorvastatin 40 mg Tablet 40 mg PO BEDTIME 30 Days Qty: 30 0RF aspirin 325 mg Tablet,Delayed Release (Dr/Ec) 325 mg PO DAILY 30 Days Qty: 30 0RF Thera 400 mcg Tablet 1 tab PO DAILY 30 Days Qty: 3 0RF oxycodone 5 mg tablet 5 mg PO Q8H PRN (Reason: pain) 7 Days Qty: 21 0RF Continued nitroglycerin [Nitrostat] 0.4 mg tablet, sublingual 0.4 mg sublingual Q5M PRN (Reason: chest pain) Qty: 20 1RF Rx Instructions: do not exceed 3 doses per episode tramadol 50 mg tablet 50 mg PO BID PRN (Reason: pain) Qty: 180 1RF losartan 50 mg tablet 50 mg PO QDAY 90 Days Qty: 90 1RF metoprolol succinate 25 mg tablet extended release 24 hr 12.5 mg PO DAILY pantoprazole 40 mg tablet,delayed release (DR/EC) 40 mg PO DAILY hydrochlorothiazide 25 mg tablet 25 mg PO DAILY Rx Instructions: TAKE 1 TABLET BY MOUTH EVERY MORNING Discontinued meloxicam 7.5 mg tablet 7.5 mg PO QDAY 90 Days Qty: 90 0RF Discharge Orders: Discharge Order (Routine); Ordered 02/24/24 Ordered By: Zoltan Haines Other Ambulatory Orders: DME: Walker (Order) Location: None Selected Ordered By: Mohsen Steele Referrals: [facility] [Outside] Jennie Cole MD [Physician] - 03/19/24 8:30 am Desiree Gomez FNP [Nurse Practitioner] - (Desiree Gomez's Office has your information and will be calling you to schedule a follow up appointment. You can also call them at [phone] if you have any questions or concerns. Thank you.) Discharge Diet: Advance as tolerated and Usual diet Discharge Activity: Increase activity as tolerated, Limit activity as instructed, Use walker/crutches as instructed and As per PT/OT instructions Patient Instructions: Aspirin (By mouth) (Jack Extra Strength, Jack Aspirin Children's,..., Multivitamins, Adult Formula (By mouth) (Daily Multiple Vitamins,..., Atorvastatin (By mouth) (Lipitor, Atorvaliq), Oxycodone, Slow Release (By mouth) (Oxycontin, Xtampza ER), Total Hip Replacement (DC), Coronary Angioplasty (DC), Opioid Safety, Post Angiogram Home Care Instructions Activity Restrictions/Additional Instructions: Posterior hip precautions. Physical therapy for gait training, ambulation, and range of motion under hip precautions. Ice to hip. You may shower, but do not sit in water. Discharge Attestations Time Spent in Discharge Care*: greater than 30 min Quality Metrics Clinical Quality Measures [ No reported AMI, CVA or VTE this stay] Coding Level of Care Code 91761 Total time (in minutes) for Discharge: 45 Diagnoses Essential hypertension I10 Mixed hyperlipidemia E78.2 Hyperlipidemia type: mixed hyperlipidemia Stable angina pectoris I20.8 Chest pain type: chest pain due to myocardial ischemia Ischemic chest pain type: stable angina pectoris FISHER (dyspnea on exertion) R06.09 Obesity (BMI 30.0-34.9) E66.9 Stage 3b chronic kidney disease N18.32
--- NOTE | 2024-02-24 16:15 | P.PN_ITS ---
Subjective 2 Subjective: The patient was seen in the cardiac stepdown unit as he had an episode of diaphoresis and chest pain when he attempted to ambulate to the bathroom. He notes, once coming down to the cardiac stepdown unit, his symptoms have improved. Medications: Reviewed: Yes Vitals/I&O/Wt Last Vital Signs Temp 97.9 F 02/24/24 16:00 Pulse 80 02/24/24 16:00 Resp 17 02/24/24 16:00 BP 133/67 02/24/24 16:00 Pulse Ox 91 02/24/24 14:27 O2 Del Method Room Air 02/24/24 11:36 O2 Flow Rate 2 02/22/24 20:00 02/24/24 02/24/24 02/24/24 06:59 14:59 22:59 Intake Total 109.333 / 744.210 Output Total 200 / 650 Balance -90.667 / 94.210 Weight last 48 hrs Weight 242 lb 11.2 oz Weight 242 lb 14 oz Weight 252 lb Physical Exam 2 Const: COMMON NORMALS: no acute distress, average body habitus, patient oriented x3 and alert GENERAL APPEARANCE: cooperative and comfortable O RIENTATION/CONSCIOUSNESS: Yes awake HENMT: COMMON NORMALS: normocephalic and atraumatic HEAD & SCALP: n ormocephalic and atraumatic Eye: GENERAL EYE: appearance normal, both eyes and all related structures Chest: COMMONS NORMALS: normal inspection of the chest Resp: COMMON NORMALS: normal respiratory effort EFFORT & INSPECTION: Yes able to speak in complete sentences and Yes symmetric chest movement Extremity: RIGHT LOWER EXTREMITY: Yes hip joint (Dressing is dry and intact.) Right hip: Yes palpation (Minimal to no tenderness.), Yes ROM (Not evaluated.) and Yes neurovascular exam (Appears intact distally.) Neuro: COMMON NORMALS: patient oriented x3 SENSORIUM/ORIENTATION: Yes alert Psych: COMMON NORMALS: mental status grossly normal APPEARANCE: Yes grossly normal ATTITUDE: Yes calm and Yes engaged ATTENTION/CONCENTRATION: Yes attention grossly intact Skin: COMMON NORMALS: no rashes or lesions noted GENERAL SKIN EXAM: no rashes or lesions noted Urinary Catheter Management: Velez: Cath Placed During This Visit: yes, but has since been removed by the nurse Reason for Continuing Indwelling Catheter: Decision to DC Catheter Urinary Catheter Date of Insertion: 02/22/24 Urinary Catheter Time of Insertion: 08:50 Date Urinary Catheter Removed: 02/23/24 Time Urinary Catheter Discontinued: 06:12 Data 02/24/24 03:33 02/24/24 03:33 A&P Assessment and plan (1) Primary osteoarthritis of right hip: Patient underwent same-day surgery for right total hip arthroplasty. On the first postoperative day, he was doing well, until he got up to use the restroom, and he became diaphoretic. He notes he took about 5 steps, and someone put a chair behind him for him to sit down. His symptoms resolved at that point, but as soon as he got up and took approximately 5 more steps, they returned. Therefore, he was transferred to the cardiac stepdown unit for further evaluation. He has been transferred to the medical service as well. (2) History of total right hip arthroplasty: Attestations 2 Medical Necessity Statement*: Ongoing care following total hip arthroplasty. Coding Level of Care Code Acute Code for [facility] Fwd Diagnoses Primary osteoarthritis of right hip M16.11 History of total right hip arthroplasty Z96.641
== END 2024-02-24 17:00 | disposition home health service (06) | DRG 470 ==
LOC: MEDSURG 12:12 → CSU 02-24 06:57 → MEDSURG 02-24 14:08
PROVIDERS: Internal Medicine; Internal Medicine Cardiovascular Disease; Specialist; Student in an Organized Health Care Education/Training Program; Admitting Provider Family Medicine; Family Provider Family Medicine; PCP Family Medicine; Visit Provider Family Medicine
PROC: 0SR90JZ Replacement of Right Hip Joint with Synthetic Substitute, Open Approach (ICD-10-PCS; CPT 27130; principal; 2024-02-22 08:20)
PROC: B2111ZZ Fluoroscopy of Multiple Coronary Arteries using Low Osmolar Contrast (ICD-10-PCS; principal; 2024-02-24 07:00)
DX: M16.11 Unilateral primary osteoarthritis, right hip (principal); R07.9 Chest pain, unspecified; I25.10 Atherosclerotic heart disease of native coronary artery without angina pectoris; G89.29 Other chronic pain; M25.561 Pain in right knee; L57.0 Actinic keratosis; I12.9 Hypertensive chronic kidney disease with stage 1 through stage 4 chronic kidney disease, or unspecified chronic kidney disease; N18.32 Chronic kidney disease, stage 3b; K21.9 Gastro-esophageal reflux disease without esophagitis; E78.2 Mixed hyperlipidemia; E55.9 Vitamin D deficiency, unspecified; M54.50 Low back pain, unspecified; E66.9 Obesity, unspecified; D69.6 Thrombocytopenia, unspecified; Z79.82 Long term (current) use of aspirin; Z68.32 Body mass index [BMI] 32.0-32.9, adult; Z87.891 Personal history of nicotine dependence
CPT/HCPCS: 36415; 36416; 51702; 71045; 72170; 80048; 80061; 82962; 83735; 84443; 84484; 85025; 85730; 93005; 93454; 93970; 96374; 96375; 97110; 97116; 97161; 97166; 97530; 99152; 99153; C1769; C1776; C1887; C1894; G0378; J0131; J0690; J1644; J2250; J2371; J2405; J2704; J3010; J3370; J3490; J7030; Q9967

== ENCOUNTER → 2024-03-19 08:23 | Outpatient (BNVA) | payer MEDICARE, OTHER, SELFPAY | PROVIDERS: Family Provider Family Medicine; PCP Family Medicine; Visit Provider Specialist | DX: M16.11 Unilateral primary osteoarthritis, right hip (principal); Z96.641 Presence of right artificial hip joint | CPT/HCPCS: 73502; 99024 ==

== ENCOUNTER → 2024-07-22 08:45 | Outpatient (BNVA) | payer MEDICARE, OTHER, SELFPAY | PROVIDERS: Family Provider Family Medicine; PCP Family Medicine; Visit Provider Specialist | DX: Z96.641 Presence of right artificial hip joint (principal) | CPT/HCPCS: 73502; 99213 ==

== ENCOUNTER 2024-08-29 16:29 | Outpatient (CLI) | payer MEDICARE, OTHER, SELFPAY | END 2024-08-29 16:30 | disposition home or self-care (01) | LOC: SLEEP 16:29 | PROVIDERS: Family Provider Family Medicine; PCP Family Medicine; Visit Provider Family Medicine | DX: G47.33 Obstructive sleep apnea (adult) (pediatric) (principal); G47.36 Sleep related hypoventilation in conditions classified elsewhere | CPT/HCPCS: G0399 ==

== ENCOUNTER 2024-10-16 15:39 | Outpatient (CLI) | payer MEDICARE, SELFPAY ==
--- NOTE | 2024-10-16 16:00 | US_ITS ---
WS: [id number] ULTRASOUND SOFT TISSUES RIGHT lower neck. HISTORY: possible metalic foreign bodies in neck COMPARISON: None available. TECHNIQUE: 2-D and color Doppler imaging is submitted. Ultrasound is directed over the RIGHT lower neck as directed by the patient. No shadowing or foreign body is identified. No soft tissue mass. Fascial planes and soft tissue planes are normal. US/US soft tissue head neck [id number] IMPRESSION: No foreign body identified in the RIGHT lower neck by ultrasound. If this is a metallic foreign body radiograph would provide additional information.
== END 2024-10-16 15:40 | disposition home or self-care (01) ==
LOC: RAD 15:40
PROVIDERS: PCP Family Medicine; Visit Provider Family Medicine
DX: S10.85XA Superficial foreign body of other specified part of neck, initial encounter (principal); X58.XXXA Exposure to other specified factors, initial encounter
CPT/HCPCS: 76536

== ENCOUNTER → 2025-02-19 08:27 | Outpatient (BNVA) | payer MEDICARE, OTHER, SELFPAY | PROVIDERS: PCP Family Medicine; Visit Provider Specialist | DX: Z96.641 Presence of right artificial hip joint (principal) | CPT/HCPCS: 73502; 99213 ==

== ENCOUNTER → 2025-03-03 09:41 | Outpatient (BNVA) | payer MEDICARE, OTHER, SELFPAY | PROVIDERS: PCP Family Medicine; Visit Provider Specialist | DX: M17.12 Unilateral primary osteoarthritis, left knee (principal) | CPT/HCPCS: 20610; 73560; 73565; 99214; J7327 ==

== ENCOUNTER → 2025-08-29 10:03 | Outpatient (BNVA) | payer MEDICARE, OTHER, SELFPAY | PROVIDERS: PCP Family Medicine; Visit Provider Family Medicine | DX: N18.32 Chronic kidney disease, stage 3b (principal) | CPT/HCPCS: 80053 ==

== ENCOUNTER → 2025-09-23 14:36 | Outpatient (BNVA) | payer MEDICARE, OTHER, SELFPAY | PROVIDERS: PCP Family Medicine; Visit Provider Internal Medicine Cardiovascular Disease | DX: I25.10 Atherosclerotic heart disease of native coronary artery without angina pectoris (principal); E78.5 Hyperlipidemia, unspecified; I12.9 Hypertensive chronic kidney disease with stage 1 through stage 4 chronic kidney disease, or unspecified chronic kidney disease; N18.32 Chronic kidney disease, stage 3b; Z86.73 Personal history of transient ischemic attack (TIA), and cerebral infarction without residual deficits; Z79.01 Long term (current) use of anticoagulants; Z79.82 Long term (current) use of aspirin; Z87.891 Personal history of nicotine dependence | CPT/HCPCS: 99215 ==

== ENCOUNTER 2025-10-21 12:57 | Outpatient (CLI) | payer MEDICARE, OTHER, SELFPAY | END 2025-10-21 12:58 | disposition home or self-care (01) | LOC: SLEEP 13:00 | PROVIDERS: PCP Family Medicine; Referring Provider Family Medicine; Visit Provider Internal Medicine Pulmonary Disease | DX: G47.30 Sleep apnea, unspecified (principal); G47.36 Sleep related hypoventilation in conditions classified elsewhere | CPT/HCPCS: G0399 ==

== ENCOUNTER → 2025-10-22 10:38 | Outpatient (BNVA) | payer MEDICARE, OTHER, SELFPAY | PROVIDERS: PCP Family Medicine; Visit Provider Family Medicine | DX: Z13.6 Encounter for screening for cardiovascular disorders (principal) | CPT/HCPCS: 80053; 80061; 84439; 84443; 85025 ==